=== PATIENT | female | born 2000 | race Caucasian/White ===

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

== ENCOUNTER 2018-01-20 09:19 | Emergency (ER) | payer OTHER ==
[2018-01-20] MEDS ORDERED: Ketorolac INJ* 30 MG/ML 1 ML VIAL IM ONE (09:41)
[2018-01-20] MEDS ORDERED: NS 0.9% 1000 ML* 1,000 ML IV ONE (09:42)
[2018-01-20] MEDS ORDERED: Ketorolac INJ* 30 MG/ML 1 ML VIAL IV PUSH PRN (09:43)
[2018-01-20] MEDS ORDERED: Ketorolac INJ* 30 MG/ML 1 ML VIAL ONE (09:47)
--- NOTE | 2018-01-20 09:51 | ED ---
GI/ HPI - HPI Summary HPI Summary: 17 female presents with cramping abdominal pain for the past week. States it feels like her period. She has not gotten her period. She has been on Depakote the last shot in October. [facility] She states that she has been on Depakote before when she switches ocp she normally gets her period. She denies any abnormal vaginal discharge. She states she did have nausea and vomiting a couple days ago but that has since resolved. No diarrhea no constipation. She' s had this pain before when she gets her period but is never been this intense. She has not been sexually active in 5 months. He states the pain is greatest suprapubic on and off in left lower quadrant. Pain does not radiate anywhere. She has a past medical history of ovarian cysts states she normally gets back pain with this. She denies any back pain. She states that she has some dysuria. She denies any urgency or frequency. She has been taking Tylenol and ibuprofen without relief. She has past medical history of diabetes but is not currently on metformin as sugars have been fine. She also has asthma. No previous belly surgeries. - History of Current Complaint Chief Complaint: EDAbdPain Time Seen by Provider: 01/20/18 09:29 Stated Complaint: ABD PAIN Hx Last Menstrual Period: 08/02/17 Pain Intensity: 9 - Allergy/Home Medications Allergies/Adverse Reactions: Allergies Allergy/AdvReac Type Severity Reaction Status Date / Time Adhesive Tape Allergy Intermediate Rash Verified 01/20/18 09:20 latex Allergy Rash Verified 01/20/18 09:20 Sulfa (Sulfonamide Allergy Rash Verified 01/20/18 09:20 Antibiotics) sulfamethoxazole Allergy Hives Verified 01/20/18 09:20 [From Bactrim] trimethoprim [From Bactrim] Allergy Hives Verified 01/20/18 09:20 Home Medications: Home Medications Albuterol HFA INHALER* [Ventolin HFA Inhaler*] 1 - 2 puff INH Q4H PRN 01/20/18 [ History Confirmed 01/20/18] Desogestrel-Ethinyl Estradiol [Isibloom 0.15-30 mg-Mcg] 1 tab PO DAILY 01/20/18 [History Confirmed 01/20/18] FLUoxetine CAP* [PROzac CAP*] 40 mg PO DAILY 01/20/18 [History Confirmed ] Mometasone/Formoter 200/5 MDI* [Dulera 200/5 MDI*] 1 puff INH BID 01/20/18 [ History Confirmed 01/20/18] PMH/Surg Hx/FS Hx/Imm Hx Endocrine/Hematology History: Reports: Hx Diabetes - insulin resistant Cardiovascular History: Denies: Hx Hypertension, Hx Pacemaker/ICD Respiratory History: Reports: Hx Asthma Denies: Hx Chronic Obstructive Pulmonary Disease (COPD) GI History: Reports: Hx Gastroesophageal Reflux Disease - untreated Denies: Hx Crohn's Disease, Hx Gall Bladder Disease, Hx Gastrointestinal Bleed, Hx Ulcer History: Denies: Hx Dialysis, Hx Kidney Infection, Hx Kidney Stones, Hx Renal Disease Musculoskeletal History: Denies: Hx Rheumatoid Arthritis, Hx Osteoporosis Sensory History: Reports: Hx Contacts or Glasses Denies: Hx Hearing Aid Opthamlomology History: Reports: Hx Contacts or Glasses Neurological History: Reports: Hx Headaches Psychiatric History: Reports: Hx Panic Disorder, Other Psychiatric Issues/ Disorders Denies: Hx Eating Disorder, Hx of Violent Episodes Against Others - Surgical History Surgery Procedure, Year, and Place: Tonsillectomy 2002 - Immunization History Date of Tetanus Vaccine: 2010 Date of Influenza Vaccine: 05/30/15 Infectious Disease History: No Infectious Disease History: Reports: Hx of Known/Suspected MRSA - Left knee wound age 9 Denies: Hx Clostridium Difficile, Hx Hepatitis, Hx Human Immunodeficiency Virus (HIV), Hx Shingles, Hx Tuberculosis, History Other Infectious Disease, Traveled Outside the [place] in Last 30 Days - Family History Known Family History: Positive: Cardiac Disease, Hypertension Family History: FHx of asthma - Social History Alcohol Use: None Hx Substance Use: No Substance Use Type: Reports: None Hx Tobacco Use: No Smoking Status (MU): Never Smoked Tobacco Have You Smoked in the Last Year: No Review of Systems Negative: Fever Negative: Chest Pain Negative: Shortness Of Breath Positive: Abdominal Pain. Negative: Vomiting, Diarrhea, Nausea All Other Systems Reviewed And Are Negative: Yes Physical Exam Triage Information Reviewed: Yes Vital Signs On Initial Exam: Initial Vitals Temp Pulse Resp BP Pulse Ox 96.8 F 84 16 145/112 99 01/20/18 09:20 01/20/18 09:20 01/20/18 09:20 01/20/18 09:20 01/20/18 09:20 Vital Signs Reviewed: Yes Appearance: Positive: Well-Appearing Skin: Positive: Warm, Dry Head/Face: Positive: Normal Head/Face Inspection Eyes: Positive: Normal, Conjunctiva Clear ENT: Positive: Pharynx normal Respiratory/Lung Sounds: Positive: Clear to Auscultation, Breath Sounds Present Cardiovascular: Positive: Normal, RRR Abdomen Description: Positive: Soft, Other: - mild tenderness suprapubic, tenderness LLQ, neg rovsings. Negative: McBurney's Point Tenderness Bowel Sounds: Positive: Present Musculoskeletal: Positive: Normal Neurological: Positive: Normal Psychiatric: Positive: Normal Diagnostics - Vital Signs Vital Signs Temp Pulse Resp BP Pulse Ox 01/20/18 09:20 96.8 F 84 16 145/112 99 - Laboratory Result Diagrams: 01/20/18 10:30 01/20/18 10:30 Lab Statement: Any lab studies that have been ordered have been reviewed, and results considered in the medical decision making process. - Ultrasound No standard instances Ultrasound Interpretation: Positive (See Comments) - IMPRESSION: 1. HETEROGENEOUS AND THICKENED ENDOMETRIUM WITH COMPLEX FLUID NOTED WITHIN THE ENDOMETRIAL CAVITY. 2. EXOPHYTIC/PARAOVARIAN SIMPLE CYST OF THE RIGHT OVARY MEASURING 2 CM. 3. NO SONOGRAPHIC FEATURES OF TORSION. PLEASE NOTE THAT PARTIAL OR INTERMITTENT TORSION MAY BE SONOGRAPHICALLY NORMAL. Ultrasound Interpretation Completed By: Radiologist LENIN Course/Dx - Course Course Of Treatment: 49-year-old female presents with right leg pain for the past couple days. She states it feels similar to when she has DVT in the past. She wanted to be sure she doesn't have DVT because she is traveling to [facility] [place]. She denies any chest pain or shortness breath. She states she has numbness and tingling on the side of her right thigh. She admits to occasional hip pain. She denies any back pain. She denies any loss of bowel or bladder. She denies any saddle anesthesia. She denies any fevers. She denies any spreading redness. She denies any rash. She is able to ambulate without difficulty. She states she got blood clot because she is traveling and is on control. She is no longer on control. She denies any family history of blood clots. No recent surgeries. Is nonsmoker. on exam tenderness suprapubic tenderness and LLQ. neg rovsings. wbc normal. transvaginal u/s shows thickened endometrium. simple cyst right ovary. will treat for uti with augmentin. labs wnl. [facility] explained likely menstrual pain as should get period shortly. patient understand and agrees with plan. - Diagnoses Differential Diagnoses - Female: Ovarian Cyst, Ovarian Torsion, Urinary Tract Infection Provider Diagnoses: Pelvic pain, UTI (urinary tract infection), Ovarian cyst Discharge - Sign-Out/Discharge Documenting (check all that apply): Discharge/Admit/Transfer - Discharge Plan Condition: Good Disposition: HOME Prescriptions: Amoxicillin/Clavulanate TAB* [Augmentin TAB 500 mg*] 500 mg PO BID #5 tab Patient Education Materials: Pelvic Pain (ED) Referrals: Zach Adrian MD [Primary Care Provider] - Additional Instructions: take antibiotic twice a day for 3 days [facility] Apply heat Take tyenlol or ibuprofen every 6 hours Return to ED if develop any new or worsening symptoms - Billing Disposition and Condition Condition: GOOD Disposition: HOME
--- OUTSIDE RECORDS SUMMARY | 2018-01-20 09:51 | XMS REPORT ---
:2000 External Reference #:[id number] Author Organization [facility] [employer] Address [address] [address] Phone [phone] Care Team Providers Name Role Phone Zach Adrian MD Primary Care Physician Unavailable Payers Type Date Identification Numbers Payment Provider Subscriber Commercial Effective: Policy Number: [id number] Marvin Traceyyenne Miguelito 2017 PayID: [id number] [address] [place] [address] Problems Date Description Provider Status Onset: 12/13/2017 Morbid obesity Zach Adrian M.D. Active Onset: 12/13/2017 Anxiety state Zach Adrian M.D. Active Onset: 11/30/2017 Asthma without status asthmaticus Zach Adrian M.D. Active Onset: 11/19/2017 Hypoglycemia Zach Adrian M.D. Active Onset: 11/19/2017 Low back pain Zach Adrian M.D. Active Onset: 11/19/2017 Gastroesophageal reflux disease Zach Adrian M.D. Active Onset: 11/19/2017 Insomnia Zach Adrian M.D. Active Social History Type Date Description Comments Lives With Alone Occupation Student ETOH Use Denies alcohol use Smoking Patient has never smoked Exercise Type/Frequency Exercises regularly Allergies, Adverse Reactions, Alerts Date Description Reaction Status Severity Comments 05/17/2017 Sulfa Antibiotics active 11/19/2017 Adhesive active 11/19/2017 Latex active hives 11/19/2017 Bactrim active hives Medications Medication Date Status Form Strength Qnty SIG Indications Ordering Provider Dulera 12/13/ Active Aerosol 200-5mcg/A 8.800 [address] gm twice a Pachikara day , M.D. Fluoxetine HCL 12/13/ Active Capsules 40mg 30cap 1 by mouth F41.9 Zach 2017 s every day Radhames Adrian. Ventolin HFA 11/30/ Active Aerosol 108(90Base 8gm 2 puffs by J06.9 Zach 2017 ) mcg/Act mouth four Pachikara times a , M.D. day as needed/use with spacer Omeprazole 11/19/ Active Capsules DR 20mg 30cap 1 by mouth K21.9 Zach 2017 s every day Pachikara 1 h before , M.D. breakfast Isibloom / Active Tablets 0.15-30mg- Unknown 0000 mcg Prednisone 11/30/ Hx Tablets 20mg 10tab 2 tab by J45.909 Zach 2017 - s mouth 5 Pachikara 12/27/ days , M.D. 2018 Azithromycin 11/30/ Hx Tablets 250mg 6tabs 2 tab J06.9 Zach 2017 - today and Pachikara 12/27/ then 1tab , M.D. 2018 daily Metformin HCL / Hx Tablets 500mg 1 by mouth Unknown 0000 - twice a 2017 Control / Hx Unknown 0000 - 2017 Prozac / Hx Unknown 0000 - 2017 Depo-Provera / Hx Suspension 150mg/ml every 3 Unknown 0000 - months 2017 Vital Signs Date Vital Result Comment 12/28/2017 Height 65 inches 5'5" Weight 244.38 lb Heart Rate 79 /min BP Systolic 120 mmHg BP Diastolic 64 mmHg O2 % BldC Oximetry 97 % BMI (Body Mass Index) 40.7 kg/m2 Height Percentile 61 % Weight Percentile >97th 12/13/2017 Height 65 inches 5'5" Weight 246.00 lb Heart Rate 95 /min BP Systolic 126 mmHg BP Diastolic 84 mmHg Body Temperature 98.6 F O2 % BldC Oximetry 98 % BMI (Body Mass Index) 40.9 kg/m2 Height Percentile 61 % Weight Percentile >97th 11/30/2017 Weight 241.00 lb Heart Rate 83 /min BP Systolic 120 mmHg BP Diastolic 82 mmHg Body Temperature 98.5 F O2 % BldC Oximetry 98 % Weight Percentile >97th 11/26/2017 Height 65 inches 5'5" Weight 242.00 lb BP Systolic 134 mmHg BP Diastolic 82 mmHg Respiratory Rate 16 /min Body Temperature 97.9 F Pain Level 8 BMI (Body Mass Index) 40.3 kg/m2 Blood Pressure Percentile 98 % Height Percentile 61 % Weight Percentile >97th 11/19/2017 Height 65 inches 5'5" Weight 241.38 lb Heart Rate 89 /min BP Systolic Sitting 128 mmHg BP Diastolic Sitting 80 mmHg O2 % BldC Oximetry 99 % BMI (Body Mass Index) 40.2 kg/m2 Blood Pressure Percentile 0 % Height Percentile 61 % Weight Percentile >97th 11/02/2017 Height 65 inches 5'5" Weight 242.00 lb BP Systolic 140 mmHg BP Diastolic 82 mmHg Respiratory Rate 18 /min Body Temperature 97.6 F Pain Level 8 BMI (Body Mass Index) 40.3 kg/m2 Blood Pressure Percentile 99 % Height Percentile 61 % Weight Percentile >97th 05/17/2017 Height 65 inches 5'5" Weight 230.00 lb Heart Rate 74 /min BP Systolic 135 mmHg BP Diastolic 88 mmHg Body Temperature 97.9 F BMI (Body Mass Index) 38.3 kg/m2 Blood Pressure Percentile 98 % Height Percentile 62 % Weight Percentile >97th Results Test Date Test Result H/L Range Note Laboratory test finding 12/15/2017 Insulin 21.9 mcIU/mL High 2.0-16.0 C-Peptide 4.7 ng/mL 1.1 - 4.4 1 Laboratory test finding 11/27/2017 Hemoglobin A1c (Glyco HGB) 4.6 % 4.0- 5.6 2 Comp Metabolic Panel 11/27/2017 Sodium 139 mmol/L 139-145 Potassium 3.8 mmol/L 3.5-5.0 Chloride 105 mmol/L 101-111 Co2 Carbon Dioxide 24 mmol/L 22-32 Anion Gap 10 mmol/L 2-11 Glucose 82 mg/dL 70-100 Blood Urea Nitrogen 8 mg/dL 6-24 Creatinine 0.60 mg/dL 0.51-0.95 BUN/Creatinine Ratio 13.3 8-20 Calcium 9.3 mg/dL 8.6-10.3 Total Protein 6.8 g/dL 6.4-8.9 Albumin 4.2 g/dL 3.2-5.2 Globulin 2.6 g/dL 2-4 Albumin/Globulin Ratio 1.6 1-3 Total Bilirubin 1.00 mg/dL 0.2-1.0 Alkaline Phosphatase 69 U/L 34-104 Alt 19 U/L 7-52 Ast 13 U/L 13-39 Egfr Non- 130.2 >60 Egfr 167.5 >60 3 Lipid Profile (Trig/Chol/HDL) 11/27/2017 Triglycerides 127 mg/dL 4 Cholesterol 158 mg/dL 5 HDL Cholesterol 32.4 mg/dL 6 LDL Cholesterol 100 mg/dL 7 Laboratory test finding 11/27/2017 Insulin Level 43.1 mcIU/mL 2.6 - 24.9 8 Cortisol 6.37 g/dL 9 TSH (Thyroid Stim Horm) 0.87 mcIU/mL 0.34-5.60 C-Peptide 5.6 ng/mL 1.1 - 4.4 10 Glutamic Acid Decarboxylase 0.01 nmol/L <=0.02 11 1 Test Performed by: [facility] [address] [place] [address] 2 Therapeutic target for the treatment of diabetes mellitus patients is <7% HBA1C, and in selective patients <6.0%. Please refer to [place] [employer] diabetic care guidelines for further information. 3 Because ethnic data is not always [...] 5 Kidney failure <15 (or dialysis) 4 Desirable: <150 Borderline High: 150-199 High: 200-499 Very High: >500 5 Desirable: <200 Borderline High: 200-239 High: >239 6 Low: <40 Desirable: 40-60 High: >60 7 Desirable: <100 Near Optimal: 100-129 Borderline High: 130-159 High: 160-189 Very High: >189 8 Test Performed by: [facility] - [address] [address] 9 AM 8.7-22.4 PM <10 10 Test Performed by: [facility] - [address] [address] 11 ADDITIONAL INFORMATION This test was developed and its performance characteristics determined by [facility] in a manner consistent with CLIA requirements. This test has not been cleared or approved by the U.S. Food and Drug Administration. Test Performed by: [facility] - [address] [address] Procedures Description No Information Encounters Type Date Location Provider CPT E/M Dx Office Visit 12/13/2017 11:40a [facility] Zach Adrian [address] J06.9 - Sho Woods M.D. J45.909 F41.9 E66.01 Office Visit 11/30/2017 3:20p [facility] Internal Zach Adrian 58049 J45.909 Medicine - Sho Woods M.D. J06.9 Office Visit 11/26/2017 1:00p [facility] [place] [address] M72.2 Of [facility]AS[facility] Office Visit 11/19/2017 10:20a [facility] Zach Adrian, [address] Z00.01 - Tbisi Woods M.D. G47.00 K21.9 M54.5 E16.1 F41.0 E66.01 Z68.54 Z00.00 Office Visit 11/02/2017 8:45a [facility] [place] [address] M72.2 C.M.ASanya M25.571 Office Visit 05/17/2017 1:30p [facility] [place] [address] M72.2 C.M.ASanya Y93.68 Plan of Care Future Appointment(s):02/08/2018 11:20 am - Zach Adrian M.D. at [facility] - [address]01/21/2018 1:00 pm - Dionisio Shelton MD at [facility]12/28/2017 - Zach Adrian M.D.E16.1 Other hypoglycemiaComments:Most likely high insulin levels probably from weight gain and obesityReduce carbohydrate diet /looseweightReferral:[facility], NutritionistFollow up:6 weeks
--- NOTE | 2018-01-20 10:47 | RAD ---
HISTORY: Lower abdominal pain COMPARISONS: August 18, 2017 TECHNIQUE: Multiple transverse and longitudinal ultrasound images were obtained of the pelvis using grayscale, color Doppler, and spectral Doppler imaging using the endovaginal transducer. FINDINGS: UTERUS: The uterus measures 5.7 x 3.1 x 3.9 cm. The uterus is normal in shape, size, contour, and echotexture. ENDOMETRIUM: The endometrium is heterogeneous and thickened. There is debris within the endometrial cavity.. The endometrium measures 1.6 cm in thickness. CUL-DE-SAC: There is no free fluid within the cul-de-sac. RIGHT OVARY: The right ovary measures 2.1 x 1 x 3 cm. There is an exophytic/paraovarian simple cyst on the right measuring 2 x 0.7 x 1 cm. Normal arterial and venous waveforms are identifiable within the ovary on spectral Doppler imaging. LEFT OVARY: The left ovary measures 2.8 x 1.3 x 2.2 cm. Normal arterial and venous waveforms are identifiable within the ovary on spectral Doppler imaging. Multiple follicles are noted. BLADDER: The bladder is not well visualized. OTHER: None IMPRESSION: 1. HETEROGENEOUS AND THICKENED ENDOMETRIUM WITH COMPLEX FLUID NOTED WITHIN THE ENDOMETRIAL CAVITY. 2. EXOPHYTIC/PARAOVARIAN SIMPLE CYST OF THE RIGHT OVARY MEASURING 2 CM. 3. NO SONOGRAPHIC FEATURES OF TORSION. PLEASE NOTE THAT PARTIAL OR INTERMITTENT TORSION MAY BE SONOGRAPHICALLY NORMAL.
[2018-01-20 10:56] LABS: ABS Basophils 0.1 10^3/ul (0-0.2); ABS Eosinophils 0.2 10^3/ul (0-0.6); ABS Lymphocytes 2.2 10^3/ul (1.0-4.8); ABS Monocytes 0.6 10^3/ul (0-0.8); ABS Neutrophils 4.1 10^3/ul (1.5-7.7); ABS Nucleated RBC 0 10^3/ul; Eosinophil % 2.7 % (0-6); Hematocrit 42 % (35-47); Hemoglobin 14.1 g/dl (12.0-16.0); Mean Corpuscular HGB Conc 34 g/dl (31-36); Mean Corpuscular Hemoglobin 28 pg (27-31); Mean Corpuscular Volume 82 fL (80-97); Mean Platelet Volume 7.8 um3 (7.4-10.4); Nucleated Red Blood Cells % 0; Platelet Count 246 10^3/ul (150-450); Red Blood Count 5.08 10^6/ul (4.0-5.4); Red Cell Distribution Width 14 % (10.5-15); White Blood Count 7.2 10^3/ul (3.5-10.8)
[2018-01-20 11:01] LABS: Urine Appearance Clear; Urine Blood 1+ (Negative); Urine Color Yellow; Urine Ketones Negative (Negative); Urine Protein Negative (Negative); Urine Urobilinogen Negative (Negative)
[2018-01-20 11:09] LABS: EGFR Non-African American 119.5 (>60)
[2018-01-20] MEDS ORDERED: Amoxicillin/Clavulanate TAB* 500 MG PO ONE (12:35)
[2018-01-20 13:02] VITALS: BP 141/88
== END 2018-01-20 13:01 | disposition home or self-care (01) ==
LOC: ED 09:19
DX: R10.2 Pelvic and perineal pain (principal); N39.0 Urinary tract infection, site not specified; N83.201 Unspecified ovarian cyst, right side; E11.9 Type 2 diabetes mellitus without complications; E88.81 Metabolic syndrome and other insulin resistance; Z88.2 Allergy status to sulfonamides
CPT/HCPCS: 36415; 76830; 80053; 81003; 81015; 83690; 84702; 85025; 86141; 87086; 96360; 96372; 96374; 99282; A9270-GY; J1885

== ENCOUNTER 2018-04-17 03:16 | Emergency (ER) | payer OTHER ==
[2018-04-17] MEDS ORDERED: Lidocaine 2% VISCOUS* 15 ML UDC PO ONE (03:24)
[2018-04-17] MEDS ORDERED: Lidocaine 2% VISCOUS* 15 ML UDC ONE (03:27)
[2018-04-17] MEDS ORDERED: Al Hydrox/Mg Hydrox/Simet LIQ* 30 ML UDC ONE (03:27)
--- OUTSIDE RECORDS SUMMARY | 2018-04-17 03:29 | XMS REPORT ---
:2000 External Reference #:[id number] Author Organization [facility] Address [address] [address] Phone [phone] Care Team Providers Name Role Phone Zach Adrian MD Primary Care Physician Unavailable Payers Type Date Identification Numbers Payment Provider Subscriber Commercial Effective: Policy Number: [id number] Marvin Spence 2017 PayID: [id number] [address] [place] [phone] Problems Date Description Provider Status Onset: 03/29/2018 Tibialis tendinitis Dionisio Shelton MD Active Onset: 03/29/2018 Plantar fascial fibromatosis Dionisio Shelton MD Active Onset: 03/22/2018 Sciatica Zach Adrian M.D. Active Onset: 12/13/2017 Morbid obesity Zach Adrian M.D. Active Onset: 12/13/2017 Anxiety state Zach Adrian M.D. Active Onset: 11/30/2017 Asthma without status asthmaticus Zach Adrian M.D. Active Onset: 11/19/2017 Hypoglycemia Zach Adrian M.D. Active Onset: 11/19/2017 Low back pain Zach Adrian M.D. Active Onset: 11/19/2017 Gastroesophageal reflux disease Zach Adrain M.D. Active Onset: 11/19/2017 Insomnia Zach Pachikara, M.D. Active Social History Type Date Description Comments Lives With Alone Occupation Student ETOH Use Denies alcohol use Smoking Patient has never smoked Exercise Type/Frequency Exercises regularly Allergies, Adverse Reactions, Alerts Date Description Reaction Status Severity Comments 05/17/2017 Sulfa Antibiotics active 11/19/2017 Adhesive active 11/19/2017 Latex active hives 11/19/2017 Bactrim active hives Medications Medication Date Status Form Strength Qnty SIG Indications Ordering Provider Naproxen 03/22/ Active Tablets 375mg 60tab twice a M54.31 Zach 2017 s day with Pachikara food , M.D. Alprazolam 02/08/ Active Tablets 0.25mg 14tab one by F41.9 [place] 2017 s mouth up Pachikara to two , M.D. times daily as needed for anxiety Dulera 12/13/ Active Aerosol 200-5mcg/A 8.800 [address] gm twice a Pachikara day , M.D. Fluoxetine HCL 12/13/ Active Capsules 40mg 30cap 1 by mouth F41.9 Zach 2017 s every day Pachdebra , M.D. Ventolin HFA 11/30/ Active Aerosol 108(90Base 8gm 2 puffs by J06.9 [place] 2017 ) mcg/Act mouth four Pachikara times a , M.D. day as needed/use with spacer Omeprazole 11/19/ Active Capsules DR 20mg 30cap 1 by mouth K21.9 [place] 2017 s every day Pachikara 1 h before , M.D. breakfast Prednisone 11/30/ Hx Tablets 20mg 10tab 2 tab by J45.909 Zach 2017 - s mouth 5 Pachikara 12/27/ days , M.D. 2018 Azithromycin 11/30/ Hx Tablets 250mg 6tabs 2 tab J06.9 [place] 2017 - today and Pachikara 12/27/ then 1tab , M.D. 2018 daily Metformin HCL / Hx Tablets 500mg 1 by mouth Unknown 0000 - twice a day 2018 Control /00/ Hx Unknown - 2017 Prozac // Hx Unknown 0000 - 2017 Depo-Provera / Hx Suspension 150mg/ml every 3 Unknown 0000 - months 2017 Isibloom / Hx Tablets 0.15-30mg- Unknown 0000 - mcg 2017 Vital Signs Date Vital Result Comment 03/29/2018 Height 65 inches 5'5" Weight 233.00 lb Heart Rate 88 /min Respiratory Rate 20 /min Body Temperature 96.7 F Pain Level 9 BMI (Body Mass Index) 38.8 kg/m2 Height Percentile 61 % Weight Percentile >97th 03/22/2018 Height 65 inches 5'5" Weight 233.00 lb Heart Rate 69 /min BP Systolic Sitting 132 mmHg BP Diastolic Sitting 82 mmHg Body Temperature 96.8 F Pain Level 7 back/Right foot O2 % BldC Oximetry 98 % BMI (Body Mass Index) 38.8 kg/m2 Height Percentile 61 % Weight Percentile >97th 02/08/2018 Height 65 inches 5'5" Weight 240.00 lb Heart Rate 85 /min BP Systolic 122 mmHg BP Diastolic 60 mmHg O2 % BldC Oximetry 96 % BMI (Body Mass Index) 39.9 kg/m2 Height Percentile 61 % Weight Percentile >97th 12/28/2017 Height 65 inches 5'5" Weight 244.38 [...] Test Date Test Result H/L Range Note CBC Auto Diff 01/20/2018 White Blood Count 7.2 10^3/uL 3.5-10.8 Red Blood Count 5.08 10^6/uL 4.0-5.4 Hemoglobin 14.1 g/dL 12.0-16.0 Hematocrit 42 % 35-47 Mean Corpuscular Volume 82 fL 80-97 Mean Corpuscular Hemoglobin 28 pg 27-31 Mean Corpuscular HGB Conc 34 g/dL 31-36 Red Cell Distribution Width 14 % 10.5-15 Platelet Count 246 10^3/uL 150-450 Mean Platelet Volume 7.8 um3 7.4-10.4 Abs Neutrophils 4.1 10^3/uL 1.5-7.7 Abs Lymphocytes 2.2 10^3/uL 1.0-4.8 Abs Monocytes 0.6 10^3/uL 0-0.8 Abs Eosinophils 0.2 10^3/uL 0-0.6 Abs Basophils 0.1 10^3/uL 0-0.2 Abs Nucleated RBC 0 10^3/uL Granulocyte % 56.7 % 38-83 Lymphocyte % 31.0 % 25-47 Monocyte % 8.6 % High 0-7 Eosinophil % 2.7 % 0-6 Basophil % 1.0 % 0-2 Nucleated Red Blood Cells % 0 Comp Metabolic Panel 01/20/2018 Sodium 139 mmol/L 139-145 Potassium 3.5 mmol/L 3.5-5.0 Chloride 108 mmol/L 101-111 Co2 Carbon Dioxide 24 mmol/L 22-32 Anion Gap 7 mmol/L 2-11 Glucose 86 mg/dL 70-100 Blood Urea Nitrogen 10 mg/dL 6-24 Creatinine 0.64 mg/dL 0.51-0.95 BUN/Creatinine Ratio 15.6 8-20 Calcium 9.3 mg/dL 8.6-10.3 Total Protein 7.0 g/dL 6.4-8.9 Albumin 4.1 g/dL 3.2-5.2 Globulin 2.9 g/dL 2-4 Albumin/Globulin Ratio 1.4 1-3 Total Bilirubin 0.80 mg/dL 0.2-1.0 Alkaline Phosphatase 63 U/L 34-104 Alt 16 U/L 7-52 Ast 14 U/L 13-39 Egfr Non- 119.5 >60 Egfr 153.7 >60 1 Laboratory test finding 01/20/2018 Lipase 32 U/L 11.0-82.0 CRP High Sensitivity 7.80 mg/L 2 HCG < 0.60 mIU/mL 3 Urinalysis Profile 01/20/2018 Urine Color Yellow Urine Appearance Clear Urine Specific [place] 1.020 1.010-1.030 Urine pH 5.0 5-9 Urine Urobilinogen Negative Negative Urine Ketones Negative Negative Urine Protein Negative Negative Urine Leukocytes 1+ Negative Urine Blood 1+ Negative Urine Nitrite Negative Negative Urine Bilirubin Negative Negative Urine Glucose Negative Negative Urine White Blood Cell 1+(6-10/hpf) Absent Urine Red Blood Cell Trace(0-2/hpf) Absent Urine Bacteria Absent Absent Urine Squamous Epithelial Cell Present Absent Urine Culture And 01/20/2018 Urine Culture SEE RESULT BELOW 4 Sensitivities Laboratory test finding 12/15/2017 Insulin 21.9 mcIU/mL High 2.0-16.0 C-Peptide 4.7 ng/mL 1.1 - 4.4 5 Laboratory test finding 11/27/2017 Hemoglobin A1c (Glyco HGB) 4.6 % 4.0- 5.6 6 Comp Metabolic Panel 11/27/2017 Sodium 139 mmol/L [...] Egfr Non- 130.2 >60 Egfr 167.5 >60 7 Lipid Profile (Trig/Chol/HDL) 11/27/2017 Triglycerides 127 mg/dL 8 Cholesterol 158 mg/dL 9 HDL Cholesterol 32.4 mg/dL 10 LDL Cholesterol 100 mg/dL 11 Laboratory test finding 11/27/2017 Insulin Level 43.1 mcIU/mL 2.6 - 24.9 12 Cortisol 6.37 g/dL 13 TSH (Thyroid Stim Horm) 0.87 mcIU/mL 0.34-5.60 C-Peptide 5.6 ng/mL 1.1 - 4.4 14 Glutamic Acid Decarboxylase 0.01 nmol/L <=0.02 15 1 Because ethnic data is not always readily [...] 15-29 5 Kidney failure <15 (or dialysis) 2 Low risk: <1.00 Average risk: 1.00-3.00 High risk: >3.00 3 <5.0 Negative 5.0 - 25.0 Indeterminate (Repeat testing recommended after 72 hours) >25.0 Positive Perimenopausal women can display HCG levels of up to 20 mIU/mL 4 SEE RESULT BELOW Name: NAHOMY SPENCE : [address]: Meryl Peralta MD Acct: [id number] Unit: [id number] AGE: 17 Location: ED Re01/20/18 SEX: F Status: DEP ER SPEC: [id number] SU: 01/20/[address]: Lizzy CAMPBELL REQ: [id number] RECD: 01/20/18 STATUS: MURRAY GARCIA DR: Zach Peralta MD _ SOURCE: URINE SPDESC: ORDERED: Urine Culture Procedure Result Reported Site Urine Culture Final 01/21/18- 1340 ML No growth of clinically significant organisms * ML - Main Lab . END OF REPORT DEPARTMENT OF PATHOLOGY, [address] [place] [address] Baljinder Gonzalez M.D. Director [facility] # [id number] 5 Test Performed by: [facility] [place] [address] 6 Therapeutic target for the treatment of diabetes mellitus patients is <7% HBA1C, and in selective patients <6.0%. Please refer to [place] [employer] diabetic care guidelines for further information. 7 Because ethnic data is not always [...] 5 Kidney failure <15 (or dialysis) 8 Desirable: <150 Borderline High: 150-199 High: 200-499 Very High: >500 9 Desirable: <200 Borderline High: 200-239 High: >239 10 Low: <40 Desirable: 40-60 High: >60 11 Desirable: <100 Near Optimal: 100-129 Borderline High: 130-159 High: 160-189 Very High: >189 12 Test Performed by: [facility] - [address] [address] 13 AM 8.7-22.4 PM <10 14 Test Performed by: [facility] - [address] [address] 15 ADDITIONAL INFORMATION This test was developed and its performance characteristics determined by [facility] in a manner consistent with CLIA requirements. This test has not been cleared or approved by the U.S. Food and Drug Administration. Test Performed by: [facility] - [address] [address] Procedures Description No Information Encounters Type Date Location Provider CPT E/M Dx Office Visit 03/22/2018 11:20a [facility] Zach Adrian [address] F41.9 - [place]bs J45.909 M54.31 N91.0 Office Visit 02/08/2018 11:20a [facility] Zach Adrian M.D. 21142 F41.9 Medicine - [address] Office Visit 12/28/2017 11:20a [facility] Low Adrian M.D. 33554 E16.1 Medicine - [address] Office Visit 12/13/2017 11:40a [facility] Low Adrian M.D. [address]4622 J06.9 Medicine - [address] J45.909 F41.9 E66.01 Office Visit 11/30/2017 3:20p [facility] Zach Adrian [address] J45.909 Medicine - [place] [address] [place]bs J06.9 Office Visit 11/26/2017 1:00p [place] [address] M72.2 Of [facility] Office Visit 11/19/2017 10:20a [facility] Zach Adrian [address] Z00.01 - [place] [address] [place] G47.00 K21.9 M54.5 E16.1 F41.0 E66.01 Z68.54 Z00.00 Office Visit 11/02/2017 8:45a [facility] [place] [address] M72.2 Petros.MLiz M25.571 Office Visit 05/17/2017 1:30p [facility] [place] [address] M72.2 C.MLiz Y93.68 Plan of Care Future Appointment(s):04/26/2018 1:30 pm - [facility]io [facility]05/03/2018 1:20 pm - Zach Adrian M.D. at [facility] - [address]/29/2018 - Dionisio Shelton, MDM72.2 Plantar fascial fibromatosisFollow up:Follow Up: 4 yegipE33.821 Posterior tibial tendinitis, right leg
--- OUTSIDE RECORDS SUMMARY | 2018-04-17 03:29 | XMS REPORT ---
:2000 External Reference #:[id number] Author Organization [facility] Address [address] [place] [place] [address] Phone [phone] Care Team Providers Name Role Phone Zach Adrian MD Primary Care Physician Unavailable Payers Type Date Identification Numbers Payment Provider Subscriber Commercial Effective: Policy Number: [id number] Marvin Corea Bauer 2017 PayID: [id number] [address] [place] [phone] Problems Date Description Provider Status Onset: 03/22/2018 Sciatica Zach Adrian M.D. Active [...] Active Tablets 0.25mg 14tab one by F41.9 Zach 2017 s mouth up Pachikara to two , M.D. times daily as needed for anxiety Dulera 12/13/ Active Aerosol 200-5mcg/A 8.800 [address] gm twice a Pachikara day , M.D. Fluoxetine HCL 12/13/ Active Capsules 40mg 30cap 1 by mouth F41.9 [place] 2017 s every day Pachikara , M.D. Ventolin HFA 11/30/ Active Aerosol [...] 0000 - twice a day 2018 Control // Hx Unknown 0000 - 2017 Prozac / Hx Unknown 0000 - 2017 Depo-Provera / Hx Suspension 150mg/ml every 3 Unknown 0000 - months 2017 Isibloom / Hx Tablets 0.15-30mg- Unknown 0000 - mcg 2017 Vital Signs Date Vital Result Comment 03/22/2018 Height 65 inches 5'5" Weight 233.00 lb Heart Rate 69 /min BP Systolic Sitting 132 mmHg BP Diastolic Sitting 82 mmHg Body Temperature 96.8 F Pain Level 7 back/Right foot O2 % BldC Oximetry 98 % BMI (Body Mass Index) 38.8 kg/m2 Height Percentile 61 % Weight Percentile >9702/08/2018 Height 65 inches 5'5" Weight 240.00 lb Heart Rate 85 /min BP Systolic 122 mmHg BP Diastolic 60 mmHg O2 % BldC Oximetry 96 % BMI (Body Mass Index) 39.9 kg/m2 Height Percentile 61 % Weight Percentile >9712/28/2017 Height 65 inches 5'5" Weight 244.38 lb Heart Rate 79 /min BP Systolic 120 mmHg BP Diastolic 64 mmHg O2 % BldC Oximetry 97 % BMI (Body Mass Index) 40.7 kg/m2 Height Percentile 61 % Weight Percentile >9712/13/2017 Height 65 inches 5'5" Weight 246.00 lb Heart Rate 95 /min BP Systolic 126 mmHg BP Diastolic 84 mmHg Body Temperature 98.6 F O2 % BldC Oximetry 98 % BMI (Body Mass Index) 40.9 kg/m2 Height Percentile 61 % Weight Percentile >9711/30/2017 Weight 241.00 lb Heart Rate 83 /min BP Systolic 120 mmHg BP Diastolic 82 mmHg Body Temperature 98.5 F O2 % BldC Oximetry 98 % Weight Percentile >9711/26/2017 Height 65 inches 5'5" Weight 242.00 lb BP Systolic 134 mmHg BP Diastolic 82 mmHg Respiratory Rate 16 /min Body Temperature 97.9 F Pain Level 8 BMI (Body Mass Index) 40.3 kg/m2 Blood Pressure Percentile 98 % Height Percentile 61 % Weight Percentile >9711/19/2017 Height 65 inches 5'5" Weight 241.38 lb Heart Rate 89 /min BP Systolic Sitting 128 mmHg BP Diastolic Sitting 80 mmHg O2 % BldC Oximetry 99 % BMI (Body Mass Index) 40.2 kg/m2 Blood Pressure Percentile 0 % Height Percentile 61 % Weight Percentile >9711/02/2017 Height 65 inches 5'5" Weight 242.00 lb BP Systolic 140 mmHg BP Diastolic 82 mmHg Respiratory Rate 18 /min Body Temperature 97.6 F Pain Level 8 BMI (Body Mass Index) 40.3 kg/m2 Blood Pressure Percentile 99 % Height Percentile 61 % Weight Percentile >9705/17/2017 Height 65 inches 5'5" Weight 230.00 lb [...] Color Yellow Urine Appearance Clear Urine Specific [place] 1.020 1.010-1.030 Urine pH 5.0 5-9 Urine [...] 20 mIU/mL 4 SEE RESULT BELOW Name: BRAYAN SPENCE : [address]: Meryl Peralta MD Acct: [id number] Unit: [id number] AGE: 17 Location: ED Re01/20/18 SEX: F Status: DEP ER SPEC: [id number] SU: 01/20/[address]: Lizzy CAMPBELL REQ: [id number] RECD: 01/20/18 STATUS: MURRAY GARCIA DR: Zach Peralta MD _ SOURCE: URINE SPDESC: ORDERED: Urine Culture Procedure Result Reported Site Urine Culture Final 01/21/18- 1340 ML No growth of clinically significant organisms * ML - Main Lab . END OF REPORT DEPARTMENT OF PATHOLOGY, [address] [place] [address] Baljinder Gonzalez M.D. Director [facility] # [id number] 5 Test Performed by: [place] [address] 6 Therapeutic target for the treatment of diabetes mellitus patients is <7% HBA1C, and in selective patients <6.0%. Please refer to [place] [employer] diabetic care guidelines for further [...] Very High: >189 12 Test Performed by: [place] [address] 13 AM 8.7-22.4 PM <10 14 Test Performed by: [address] [address] 15 ADDITIONAL INFORMATION This test was developed and its performance characteristics determined by [facility] in a manner consistent with CLIA requirements. This test has not been cleared or approved by the U.S. Food and Drug Administration. Test Performed by: [address] [address] Procedures Description No Information Encounters Type Date Location Provider CPT E/M Dx Office Visit 02/08/2018 11:20a [facility] Medicine Zach Adrian, [address] F41.9 - [place] [address] Office Visit 12/28/2017 11:20a [facility] Internal [facility] Zach Adrian [address] E16.1 - [place] [address] [place] Office Visit 12/13/2017 11:40a [facility] Zach Adrian [address] J06.9 - [place] [address] [place] J45.909 F41.9 E66.01 Office Visit 11/30/2017 3:20p [facility] Internal Zach Adrian [address] J45.909 Medicine - [place] [address] [place] J06.9 Office Visit 11/26/2017 1:00p [place] [address] M72.2 Of [facility] Office Visit 11/19/2017 10:20a [facility] Internal [facility] Zach Adrian, [address] Z00.01 - [place] G47.00 K21.9 M54.5 E16.1 F41.0 E66.01 Z68.54 Z00.00 Office Visit 11/02/2017 8:45a [facility] [place] [address] M72.2 C.M.A. M25.571 Office Visit 05/17/2017 1:30p [facility] [place] [address] M72.2 C.M.A. Y93.68 Plan of Care Future Appointment(s):05/03/2018 1:20 pm - aZch Adrian M.D. at [facility] Medicine - [address]/22/2018 - Zach Adrian M.D.F41.9 Anxiety disorder, unspecifiedComments:Xanax has addiction potential and tolerance. Not to increase dose yourself. Always try to cut down the dose. Not to drive after taking it because of its sedating effects . care home use can lead to memmory problems.Follow up:6 jlpkjE27.909 Unspecified asthma, uncomplicatedComments: Your asthma symptoms are stable. Continue both the Dulera twice a day and ventolin as needed.M54.31 Sciatica, right sideNew Medication:Naproxen 375 mgN91.0 Primary amenorrheaComments:Make sure to call EAR MACHINE OPERATOR
[2018-04-17] MEDS ORDERED: Al Hydrox/Mg Hydrox/Simet LIQ* 30 ML UDC PO ONE (03:33)
[2018-04-17 03:45] LABS: ABS Basophils 0.2 10^3/ul (0-0.2); ABS Eosinophils 0.4 10^3/ul (0-0.6); ABS Lymphocytes 4.5 10^3/ul (1.0-4.8); ABS Monocytes 1.2 10^3/ul (0-0.8); ABS Neutrophils 9.4 10^3/ul (1.5-7.7); ABS Nucleated RBC 0 10^3/ul; Eosinophil % 2.8 % (0-6); Hematocrit 42 % (35-47); Hemoglobin 14.6 g/dl (12.0-16.0); Lymphocyte % 28.6 % (25-47); Mean Corpuscular HGB Conc 35 g/dl (31-36); Mean Corpuscular Hemoglobin 28 pg (27-31); Mean Corpuscular Volume 81 fL (80-97); Mean Platelet Volume 7.8 um3 (7.4-10.4); Nucleated Red Blood Cells % 0.1; Platelet Count 319 10^3/ul (150-450); Red Blood Count 5.21 10^6/ul (4.00-5.40); Red Cell Distribution Width 13 % (10.5-15); White Blood Count 15.7 10^3/ul (3.5-10.8)
[2018-04-17 04:57] LABS: Urine Appearance Cloudy; Urine Blood Negative (Negative); Urine Color Yellow; Urine Ketones Negative (Negative); Urine Protein Negative (Negative); Urine Red Blood Cell Absent (Absent); Urine Urobilinogen Negative (Negative); Urine White Blood Cell Trace(0-5/hpf) (Absent)
[2018-04-17] MEDS ORDERED: Famotidine TAB* 20 MG PO ONE (06:02)
[2018-04-17] MEDS ORDERED: Ondansetron ODT TAB* 4 MG PO ONE (06:02)
--- NOTE | 2018-04-17 06:09 | ED ---
Abdominal Pain/Female - HPI Summary HPI Summary: Pt.is a 17-year-old female who presents emergency department for acute onset of epigastric abdominal pain, vomiting and diarrhea that started early this morning. She denies sick contacts or recent travels. Pain is constant in nature without modifying factors. Denies upper respiratory symptoms of cough, sore throat, sinus congestion. Denies urinary symptoms, vaginal bleeding or discharge. Symptoms are moderate in severity. She notes she has a hx of GERD but only takes medications when symptoms occur. No significant past medical history. - History of Current Complaint Chief Complaint: EDAbdPain Stated Complaint: ABD/BACK PAIN Time Seen by Provider: 04/17/18 05:53 Hx Obtained From: Patient Hx Last Menstrual Period: 08/02/17 Pain Intensity: 10 Allergies/Adverse Reactions: Allergies Allergy/AdvReac Type Severity Reaction Status Date / Time Adhesive Tape Allergy Intermediate Rash Verified 01/20/18 09:20 latex Allergy Rash Verified 01/20/18 09:20 Sulfa (Sulfonamide Allergy Rash Verified 01/20/18 09:20 Antibiotics) sulfamethoxazole Allergy Hives Verified 01/20/18 09:20 [From Bactrim] trimethoprim [From Bactrim] Allergy Hives Verified 01/20/18 09:20 PMH/Surg Hx/FS Hx/Imm Hx Previously Healthy: Yes Endocrine/Hematology History: Reports: Hx Diabetes - insulin resistant Cardiovascular History: Denies: Hx Hypertension, Hx Pacemaker/ICD Respiratory History: Reports: Hx Asthma Denies: Hx Chronic Obstructive Pulmonary Disease (COPD) GI History: Reports: Hx Gastroesophageal Reflux Disease - untreated Denies: Hx Crohn's Disease, Hx Gall Bladder Disease, Hx Gastrointestinal Bleed, Hx Ulcer History: Denies: Hx Dialysis, Hx Kidney Infection, Hx Kidney Stones, Hx Renal Disease Musculoskeletal History: Denies: Hx Rheumatoid Arthritis, Hx Osteoporosis Sensory History: Reports: Hx Contacts or Glasses Denies: Hx Hearing Aid Opthamlomology History: Reports: Hx Contacts or Glasses Neurological History: Reports: Hx Headaches Psychiatric History: Reports: Hx Panic Disorder, Other Psychiatric Issues/ Disorders Denies: Hx Eating Disorder, Hx of Violent Episodes Against Others - Surgical History Surgery Procedure, Year, and Place: Tonsillectomy 2002 - Immunization History Date of Tetanus Vaccine: utd Date of Influenza Vaccine: unk Infectious Disease History: No Infectious Disease History: Reports: Hx of Known/Suspected MRSA - Left knee wound age 9 Denies: Hx Clostridium Difficile, Hx Hepatitis, Hx Human Immunodeficiency Virus (HIV), Hx Shingles, Hx Tuberculosis, History Other Infectious Disease, Traveled Outside the [place] in Last 30 Days - Family History Known Family History: Positive: Cardiac Disease, Hypertension Family History: FHx of asthma - Social History Occupation: Employed Full-time Lives: Alone Alcohol Use: None Hx Substance Use: No Substance Use Type: Reports: None Hx Tobacco Use: No Smoking Status (MU): Never Smoked Tobacco Have You Smoked in the Last Year: No Review of Systems Constitutional: Negative Negative: Fever, Chills Eyes: Negative ENT: Negative Cardiovascular: Negative Respiratory: Negative Positive: Abdominal Pain, Vomiting, Diarrhea, Nausea Genitourinary: Negative Negative: burning, dysuria, discharge Neurological: Negative All Other Systems Reviewed And Are Negative: Yes Physical Exam Triage Information Reviewed: Yes Vital Signs On Initial Exam: Initial Vitals Temp Pulse Resp BP Pulse Ox 98 F 110 24 164/132 100 04/17/18 03:17 04/17/18 03:17 04/17/18 03:17 04/17/18 03:17 04/17/18 03:17 Vital Signs Reviewed: Yes Appearance: Positive: Well-Appearing - Pt. lying in bed in NAD. Anxious. Skin: Positive: Warm, Dry Head/Face: Positive: Normal Head/Face Inspection Eyes: Positive: Normal Neck: Positive: Supple Cardiovascular: Positive: Normal, RRR Abdomen Description: Positive: Other: - Morbidly obese. Abd. is soft with diffuse tenderness. Majority of pain is located to the epigastric region. Negative burgos's sign. No rebound tenderness or rigidity. Neurological: Positive: Normal, CN Intact II-III Psychiatric: Positive: Affect/Mood Appropriate Diagnostics - Vital Signs Vital Signs Temp Pulse Resp BP Pulse Ox 04/17/18 05:37 97.9 F 104 22 141/95 99 04/17/18 03:17 98 F 110 24 164/132 100 - Laboratory Lab Results: Lab Results 04/17/18 04/17/18 04/17/18 Range/Units 03:29 03:29 04:05 WBC 15.7 H (3.5-10.8) 10^3/ul RBC 5.21 (4.00-5.40) 10^6/ul Hgb 14.6 (12.0-16.0) g/dl Hct 42 (35-47) % MCV 81 (80-97) fL MCH 28 (27-31) pg MCHC 35 (31-36) g/dl RDW 13 (10.5-15) % Plt Count 319 (150-450) 10^3/ul MPV 7.8 (7.4-10.4) um3 Neut % (Auto) 60.0 (38-83) % Lymph % (Auto) 28.6 (25-47) % [place] % (Auto) 7.6 H (0-7) % Eos % (Auto) 2.8 (0-6) % Baso % (Auto) 1.0 (0-2) % Absolute Neuts (auto) 9.4 H (1.5-7.7) 10^3/ul Absolute Lymphs (auto) 4.5 (1.0-4.8) 10^3/ul Absolute Monos (auto) 1.2 H (0-0.8) 10^3/ul Absolute Eos (auto) 0.4 (0-0.6) 10^3/ul Absolute Basos (auto) 0.2 (0-0.2) 10^3/ul Absolute Nucleated RBC 0 10^3/ul Nucleated RBC % 0.1 Sodium 140 (135-145) mmol/L Potassium 3.6 (3.5-5.0) mmol/L Chloride 104 (101-111) mmol/L Carbon Dioxide 27 (22-32) mmol/L Anion Gap 9 (2-11) mmol/L BUN 10 (6-24) mg/dL Creatinine 0.71 (0.51-0.95) mg/dL Est GFR ( Amer) 128.3 (>60) Est GFR (Non-Af Amer) 106.0 (>60) BUN/Creatinine Ratio 14.1 (8-20) Glucose 107 H (70-100) mg/dL Calcium 9.6 (8.6-10.3) mg/dL Total Bilirubin 0.80 (0.2-1.0) mg/dL AST 18 (13-39) U/L ALT 28 (7-52) U/L Alkaline Phosphatase 90 (34-104) U/L Total Protein 7.6 (6.4-8.9) g/dL Albumin 4.4 (3.2-5.2) g/dL Globulin 3.2 (2-4) g/dL Albumin/Globulin Ratio 1.4 (1-3) Lipase 22 (11.0-82.0) U/L Beta HCG, Quant < 0.60 mIU/mL Urine Color Yellow Urine Appearance Cloudy Urine pH 7.0 (5-9) Ur Specific [place] 1.020 (1.010-1.030) Urine Protein Negative (Negative) Urine Ketones Negative (Negative) Urine Blood Negative (Negative) Urine Nitrate Negative (Negative) Urine Bilirubin Negative (Negative) Urine Urobilinogen Negative (Negative) Ur Leukocyte Esterase 1+ A (Negative) Urine WBC (Auto) Trace(0-5/hpf) (Absent) Urine RBC (Auto) Absent (Absent) Ur Squamous Epith Cells Present A (Absent) Amorphous Crystals Present A (Absent) Urine Bacteria Absent (Absent) Urine Glucose Negative (Negative) Result Diagrams: 04/17/18 03:29 04/17/18 03:29 Lab Statement: Any lab studies that have been ordered have been reviewed, and results considered in the medical decision making process. Abdominal Pain Fem Course/Dx - Course Course Of Treatment: Pt. presenting for epigastric pain, vomiting and diarrhea. HR and BP initially elevated. Will recheck. Afebrile. Benign abd. exam. Blood work and urine obtained in triage. CBC shows leukocytosis of 15K. Blood work is otherwise unremarkable. Negative urine. Pt. was given GI cocktail in triage that she states briefly improved pain. Suscept gastroenteritis. Will give PO zofran and pepcid. 0715: Pt. states her pain has not improved after medication. Pt. pain is only located to epigastric region. She described has a pressure and notes she has been having a lot of gas since in ED. Will try simethicone. Did discuss with pt. possibility of imaging given WBC and ongoing pain if her does not improve. 0800: Pt.'s pain is improving. Tolerating POs. Will rx pepcid and zofran. Can take pepto OTC as directed. Pt.'s BP has continued to be elevated in ED. No hx of HTN. Advised pt. to call PCP tomorrow for a f.u apt. and recheck BP. To increase fluids. Clear liquid diet x 24 hours. To return to ER if symptoms change or worsen. - Diagnoses Differential Diagnosis: Positive: Appendicitis, Constipation, Ectopic , Gall Bladder Disease, Hepatitis, Ovarian Cyst, , Renal Colic, Urinary Tract Infection Provider Diagnoses: Gastroenteritis, Elevated blood pressure reading Discharge - Sign-Out/Discharge Documenting (check all that apply): Patient Departure - Discharge Plan Condition: Good Disposition: HOME Prescriptions: Famotidine TAB* [Pepcid 20 MG TAB*] 20 mg PO DAILY #14 tab Ondansetron TAB* [Zofran 4 MG Tab*] 4 mg PO Q6H PRN #12 tab PRN Reason: Nausea Patient Education Materials: Gastroenteritis (ED), Hypertension (ED) Referrals: Zach Adrian MD [Primary Care Provider] - Additional Instructions: Call your PCP tomorrow to schedule a follow up appointment Your blood pressure was high in ED today-you will need to see your PCP in the next week to have it rechecked Take medications as prescribed Can take over the counter pepto bismol as directed to help with pain and symptoms Increase fluids Clear liquid diet x 24 hours Return to ER if symptoms change or worsen - Billing Disposition and Condition Condition: GOOD Disposition: Home
[2018-04-17] MEDS ORDERED: Simethicone TAB* 80 MG TAB.CHEW PO ONE (07:16)
[2018-04-17 08:38] VITALS: BP 147/106
== END 2018-04-17 08:38 | disposition home or self-care (01) ==
LOC: ED 03:16
DX: K52.9 Noninfective gastroenteritis and colitis, unspecified (principal); R03.0 Elevated blood-pressure reading, without diagnosis of hypertension; Z91.040 Latex allergy status; Z88.2 Allergy status to sulfonamides; Z91.048 Other nonmedicinal substance allergy status; Z82.49 Family history of ischemic heart disease and other diseases of the circulatory system; Z82.5 Family history of asthma and other chronic lower respiratory diseases
CPT/HCPCS: 36415; 80053; 81003; 81015; 83690; 84702; 85025; 87086; 99283; A9270-GY

== ENCOUNTER 2018-05-31 23:05 | Emergency (ER) | payer OTHER ==
[2018-06-01] MEDS ORDERED: Ciproflox/Dexameth OTIC.SUSP* 7.5 ML BTL RIGHT EAR ONE (00:04)
[2018-06-01] MEDS ORDERED: Ibuprofen TAB* 600 MG PO ONE (00:04)
--- NOTE | 2018-06-01 00:09 | ED ---
Throat Pain/Nasal Congestion - HPI Summary HPI Summary: Patient complains of right ear pain 3 days with purulent discharge and low- grade fever. Denies history of recurrent ear infections, cough, sore throat, ROBLES , neck pain or stiffness, N/V, CP, SOB, abdominal pain, change in urine, change in BM. Medical history is allergies, GERD, DM - History of Current Complaint Chief Complaint: EDEarPain Time Seen by Provider: 05/31/18 23:56 Hx Obtained From: Patient, Family/Environmental Field Office Manager Onset/Duration: Gradual Onset, Lasting Days Severity: Moderate Associated Signs And Symptoms: Positive: Negative Cough: None Related History: Seasonal Allergies - Allergies/Home Medications Allergies/Adverse Reactions: Allergies Allergy/AdvReac Type Severity Reaction Status Date / Time Adhesive Tape Allergy Intermediate Rash Verified 05/31/18 23:13 latex Allergy Rash Verified 05/31/18 23:13 Sulfa (Sulfonamide Allergy Rash Verified 05/31/18 23:13 Antibiotics) sulfamethoxazole Allergy Hives Verified 05/31/18 23:13 [From Bactrim] trimethoprim [From Bactrim] Allergy Hives Verified 05/31/18 23:13 PMH/Surg Hx/FS Hx/Imm Hx Endocrine/Hematology History: Reports: Hx Diabetes - insulin resistant Cardiovascular History: Denies: Hx Hypertension, Hx Pacemaker/ICD Respiratory History: Reports: Hx Asthma Denies: Hx Chronic Obstructive Pulmonary Disease (COPD) GI History: Reports: Hx Gastroesophageal Reflux Disease - untreated Denies: Hx Crohn's Disease, Hx Gall Bladder Disease, Hx Gastrointestinal Bleed, Hx Ulcer History: Denies: Hx Dialysis, Hx Kidney Infection, Hx Kidney Stones, Hx Renal Disease Musculoskeletal History: Denies: Hx Rheumatoid Arthritis, Hx Osteoporosis Sensory History: Reports: Hx Contacts or Glasses Denies: Hx Hearing Aid Opthamlomology History: Reports: Hx Contacts or Glasses Neurological History: Reports: Hx Headaches Psychiatric History: Reports: Hx Panic Disorder, Other Psychiatric Issues/ Disorders Denies: Hx Eating Disorder, Hx of Violent Episodes Against Others - Surgical History Surgery Procedure, Year, and Place: Tonsillectomy 2002 - Immunization History Date of Tetanus Vaccine: utd Date of Influenza Vaccine: unk Infectious Disease History: No Infectious Disease History: Reports: Hx of Known/Suspected MRSA - Left knee wound age 9 Denies: Hx Clostridium Difficile, Hx Hepatitis, Hx Human Immunodeficiency Virus (HIV), Hx Shingles, Hx Tuberculosis, History Other Infectious Disease, Traveled Outside the [place] in Last 30 Days - Family History Known Family History: Positive: Cardiac Disease, Hypertension Family History: FHx of asthma - Social History Alcohol Use: None Hx Substance Use: No Substance Use Type: Reports: None Hx Tobacco Use: No Smoking Status (MU): Never Smoked Tobacco Have You Smoked in the Last Year: No Review of Systems Positive: Fever Eyes: Negative Positive: Ear Ache Cardiovascular: Negative Respiratory: Negative Gastrointestinal: Negative Genitourinary: Negative Musculoskeletal: Negative Skin: Negative Neurological: Negative Psychological: Normal All Other Systems Reviewed And Are Negative: Yes Physical Exam - Summary Physical Exam Summary: Left ear normal exam. Right ear inflamed ear canal consistent with otitis externa. No discharge noted. Triage Information Reviewed: Yes Vital Signs On Initial Exam: Initial Vitals Temp Pulse Resp BP Pulse Ox 97.3 F 98 16 150/107 99 05/31/18 23:09 05/31/18 23:09 05/31/18 23:09 05/31/18 23:09 05/31/18 23:09 Vital Signs Reviewed: Yes Appearance: Positive: Well-Appearing Skin: Positive: Warm Head/Face: Positive: Normal Head/Face Inspection Eyes: Positive: Normal ENT: Positive: Normal ENT inspection Neck: Positive: Supple Respiratory/Lung Sounds: Positive: Clear to Auscultation Cardiovascular: Positive: Normal Abdomen Description: Positive: Nontender Musculoskeletal: Positive: Normal Neurological: Positive: Normal Psychiatric: Positive: Normal AVPU Assessment: Alert - [place] Coma Scale Best Eye Response: 4 - Spontaneous Best Motor Response: 6 - Obeys Commands Best Verbal Response: 5 - Oriented Coma Scale Total: 15 Diagnostics - Vital Signs Vital Signs Temp Pulse Resp BP Pulse Ox 05/31/18 23:09 97.3 F 98 16 150/107 99 - Laboratory Lab Statement: Any lab studies that have been ordered have been reviewed, and results considered in the medical decision making process. EENT Course/Dx - Course Course Of Treatment: Patient complains of right ear pain 3 days with purulent discharge and low-grade fever. Denies history of recurrent ear infections, cough, sore throat, ROBLES, neck pain or stiffness, N/V, CP, SOB, abdominal pain, change in urine, change in BM. Medical history is allergies, GERD, DM. Physical exam:Left ear normal exam. Right ear inflamed ear canal consistent with otitis externa. No discharge noted. Vital signs within normal limits. Cipro Drops applied. Patient sent home with tube - Diagnoses Provider Diagnoses: Otitis externa Discharge - Sign-Out/Discharge Documenting (check all that apply): Patient Departure - Discharge Plan Condition: Stable Disposition: HOME Patient Education Materials: Otitis Externa (ED) Referrals: Zach Adrian MD [Primary Care Provider] - Additional Instructions: Put 4 antibiotic drops in right ear twice a day for 7 days. Take Tylenol or ibuprofen for pain and fever. Follow-up with primary care. Return to the ED for any new or worsening symptoms - Billing Disposition and Condition Condition: STABLE Disposition: Home
[2018-06-01 00:28] VITALS: BP 148/92
== END 2018-06-01 00:25 | disposition home or self-care (01) ==
LOC: ED 23:05
DX: H60.91 Unspecified otitis externa, right ear (principal); H92.01 Otalgia, right ear
CPT/HCPCS: 99281; A9270-GY

== ENCOUNTER 2018-12-09 11:10 | Emergency (ER) | payer OTHER ==
--- NOTE | 2018-12-09 11:37 | ED ---
Respiratory - HPI Summary HPI Summary: This patient is a 18 year old F presenting to [facility] with a chief complaint of cough since 3 days ago. The patient rates the pain 9/10 in severity. Symptoms aggravated by nothing. Symptoms alleviated by nothing. Patient reports rhinorrhea, sore throat, loss of voice, and cough. Patient denies fever. Patient has hx of asthma. Patient reports she has been taking dulera, albuterol , and mucinex. - History of Current Complaint Chief Complaint: EDUpperRespComplaint Stated Complaint: COUGH/SOB PER PT Time Seen by Provider: 12/09/18 11:19 Hx Obtained From: Patient Onset/Duration: Gradual Onset, Lasting Days - 3 days, Still Present Timing: Constant Initial Severity: Moderate Current Severity: Moderate Pain Intensity: 9 Character: Wheezing, Cough (Productive), Cough (Nonproductive) Aggravating Factor(s): Nothing Alleviating Factor(s): Nothing Associated Signs and Symptoms: Wheezing, Nasal Congestion - Allergy/Home Medications Allergies/Adverse Reactions: Allergies Allergy/AdvReac Type Severity Reaction Status Date / Time Adhesive Tape Allergy Intermediate Rash Verified 12/09/18 11:12 latex Allergy Rash Verified 12/09/18 11:12 Sulfa (Sulfonamide Allergy Rash Verified 12/09/18 11:12 Antibiotics) sulfamethoxazole Allergy Hives Verified 12/09/18 11:12 [From Bactrim] trimethoprim [From Bactrim] Allergy Hives Verified 12/09/18 11:12 Home Medications: Home Medications Desogestrel-Ethinyl Estradiol [Isibloom 28 Day Tablet] 1 each PO DAILY 12/09/18 [History Confirmed 12/09/18] Omeprazole 20 mg PO DAILY 12/09/18 [History Confirmed 12/09/18] PMH/Surg Hx/FS Hx/Imm Hx Endocrine/Hematology History: Reports: Hx Diabetes - insulin resistant Cardiovascular History: Denies: Hx Hypertension, Hx Pacemaker/ICD Respiratory History: Reports: Hx Asthma Denies: Hx Chronic Obstructive Pulmonary Disease (COPD) GI History: Reports: Hx Gastroesophageal Reflux Disease - untreated Denies: Hx Crohn's Disease, Hx Gall Bladder Disease, Hx Gastrointestinal Bleed, Hx Ulcer History: Denies: Hx Dialysis, Hx Kidney Infection, Hx Kidney Stones, Hx Renal Disease Musculoskeletal History: Denies: Hx Rheumatoid Arthritis, Hx Osteoporosis Sensory History: Reports: Hx Contacts or Glasses Denies: Hx Hearing Aid Opthamlomology History: Reports: Hx Contacts or Glasses Neurological History: Reports: Hx Headaches Psychiatric History: Reports: Hx Panic Disorder, Other Psychiatric Issues/ Disorders Denies: Hx Eating Disorder, Hx of Violent Episodes Against Others - Surgical History Surgery Procedure, Year, and Place: Tonsillectomy 2003 - Immunization History Date of Tetanus Vaccine: up to date Date of Influenza Vaccine: 2018 Infectious Disease History: No Infectious Disease History: Reports: Hx of Known/Suspected MRSA - Left knee wound age 9 Denies: Hx Clostridium Difficile, Hx Hepatitis, Hx Human Immunodeficiency Virus (HIV), Hx Shingles, Hx Tuberculosis, History Other Infectious Disease, Traveled Outside the [place] in Last 30 Days - Family History Known Family History: Positive: Cardiac Disease, Hypertension Family History: FHx of asthma - Social History Alcohol Use: None Hx Substance Use: No Substance Use Type: Reports: None Hx Tobacco Use: No Smoking Status (MU): Never Smoked Tobacco Have You Smoked in the Last Year: No Review of Systems Negative: Fever Positive: Sore Throat, Nasal Discharge, Other - soft voice Positive: Cough Negative: Vomiting Negative: Rash All Other Systems Reviewed And Are Negative: Yes Physical Exam - Summary Physical Exam Summary: VITAL SIGNS: Reviewed. GENERAL: Patient is a well-developed and nourished FEMALE who is lying comfortable in the stretcher. Patient is not in any acute respiratory distress. HEAD AND FACE: No signs of trauma. No ecchymosis, hematomas or skull depressions. No sinus tenderness. EYES: PERRLA, EOMI x 2, No injected conjunctiva, no nystagmus. EARS: Hearing grossly intact. Ear canals and tympanic membranes are within normal limits. NOSE: runny nose MOUTH: Oropharynx within normal limits. NECK: Supple, trachea is midline, no adenopathy, no JVD, no carotid bruit, no c- spine tenderness, neck with full ROM. CHEST: Symmetric, no tenderness at palpation LUNGS: Decreased breath sounds bilaterally, wheezing, no crackles. CVS: Regular rate and rhythm, S1 and S2 present, no murmurs or gallops appreciated. ABDOMEN: Soft, non-tender. No signs of distention. No rebound no guarding, and no masses palpated. Bowel sounds are normal. EXTREMITIES: FROM in all major joints, no edema, no cyanosis or clubbing. NEURO: Alert and oriented x 3. No acute neurological deficits. Speech is normal and follows commands. SKIN: Dry and warm Triage Information Reviewed: Yes Vital Signs On Initial Exam: Initial Vitals Temp Pulse Resp BP Pulse Ox 98.3 F 93 22 142/96 98 12/09/18 11:14 12/09/18 11:14 12/09/18 11:14 12/09/18 11:14 12/09/18 11:14 Vital Signs Reviewed: Yes Diagnostics - Vital Signs Vital Signs Temp Pulse Resp BP Pulse Ox 12/09/18 11:14 98.3 F 93 22 142/96 98 - Laboratory Result Diagrams: 12/09/18 12:38 12/09/18 12:38 Lab Statement: Any lab studies that have been ordered have been reviewed, and results considered in the medical decision making process. - Radiology CXR Radiology Interpretation Completed By: Radiologist Summary of Radiographic Findings: No active cardiopulmonary disease. Dr. Street has reviewed this report. Disposition - Course Assessment/Plan: This patient is a 18-year-old female who presents to the emergency room with chief complaint of shortness of breath. The patient reports that shes been having burning nose, sore throat, and the shortness of breath. The patient has history of asthma. Chest x-ray impression: No active cardiopulmonary disease. Blood work without any significant abnormality except 4 CRP of 14.02. Urinalysis is negative for UTI. In the ED course the patient was given DuoNebs and so emergent. After these medications the patients symptoms have improved. Therefore the patient will be discharged home with follow-up with primary care physician. I discussed all the findings and test results with the patient. Patient was instructed to return to the emergency room immediately if any of the symptoms return worsens. Plan of care was discussed with the patient and understands and agrees. All questions were answered at patient satisfaction. There were no further complaints or concerns. Lung exam before discharge: CTA B/L. Good air exchange. No wheezing or crackles heard. CVS: S1 and S2 present. No murmurs appreciated. Patient is alert and oriented x 3. Patient is hemodynamically stable. Patient will be discharged home with follow up PCP in the next 2-3 days - Diagnoses Provider Diagnoses: Asthma exacerbation Discharge - Sign-Out/Discharge Documenting (check all that apply): Patient Departure - Discharge Patient Received Moderate/Deep Sedation with Procedure: No - Discharge Plan Condition: Stable Disposition: HOME Prescriptions: Albuterol/Ipratropium NEB.WILBER* [Duoneb (Albuterol 2.5 MG/Ipratropium 0.5 MG)] 1 neb INH Q4H PRN #1 laure PRN Reason: Wheezing predniSONE TAB* [Deltasone 20 MG TAB*] 40 mg PO DAILY #10 tab Patient Education Materials: Asthma (ED) Referrals: Sylvia Marsh MD [Primary Care Provider] - 2 Days Additional Instructions: Follow up with your primary care provider in 2-3 days. Return to the Emergency Department for new or worsening symptoms. - Billing Disposition and Condition Condition: STABLE Disposition: Home - Attestation Statements Document Initiated by Scribe: Yes Documenting Scribe: Lizzy Brandon Provider For Whom Robert is Documenting (Include Credential): Marc Street MD Scribe Attestation: Lizzy Cristobal, scribed for Marc Street MD on 12/09/18 at 1625. Scribe Documentation Reviewed: Yes Provider Attestation: The documentation as recorded by the scribeLizzy accurately reflects the service I personally performed and the decisions made by Marc callejas MD Status of Scribe Document: Viewed
[2018-12-09] MEDS ORDERED: Albuterol/Ipratropium NEB.SOL* Albuterol 2.5 MG/Ipratropium 0.5 MG 3 ML INH ONE (11:45)
[2018-12-09] MEDS ORDERED: methylPREDNISolone 125 MG* 2 ML VIAL IV ONE (11:45)
[2018-12-09 13:17] LABS: ALT 20 U/L (7-52); AST 15 U/L (13-39); Albumin 4.3 g/dL (3.2-5.2); Albumin/Globulin Ratio 1.5 (1-3); Alkaline Phosphatase 84 U/L (34-104); Anion Gap 9 mmol/L (2-11); BUN/Creatinine Ratio 13.3 (8-20); Blood Urea Nitrogen 8 mg/dL (6-24); C Reactive Protein 14.02 mg/L (<8.01); CO2 Carbon Dioxide 26 mmol/L (22-32); Calcium 9.2 mg/dL (8.6-10.3); Chloride 104 mmol/L (101-111); EGFR African American 154.2 (>60); EGFR Non-African American 127.5 (>60); Globulin 2.9 g/dL (2-4); Glucose 80 mg/dL (70-100); Potassium 3.6 mmol/L (3.5-5.0); Sodium 139 mmol/L (135-145); Total Protein 7.2 g/dL (6.4-8.9)
[2018-12-09 13:18] LABS: HCG Pregnancy < 0.60 mIU/mL
[2018-12-09 13:26] LABS: ABS Basophils 0.1 10^3/ul (0-0.2); ABS Eosinophils 0.1 10^3/ul (0-0.6); ABS Lymphocytes 2.6 10^3/ul (1.0-4.8); ABS Monocytes 0.8 10^3/ul (0-0.8); ABS Neutrophils 7.1 10^3/ul (1.5-7.7); ABS Nucleated RBC 0 10^3/ul; Eosinophil % 1.4 %; Hematocrit 41 % (33-41); Lymphocyte % 23.9 %; Mean Corpuscular HGB Conc 34 g/dL (31-36); Mean Corpuscular Hemoglobin 28 pg (27-31); Mean Corpuscular Volume 82 fL (80-97); Mean Platelet Volume 7.9 fL (7.4-10.4); Nucleated Red Blood Cells % 0.2; Platelet Count 310 10^3/uL (150-450); Red Blood Count 4.98 10^6 /uL (3.70-4.87); Red Cell Distribution Width 13 % (10.5-15); White Blood Count 10.7 10^3/uL (3.5-10.8)
[2018-12-09 13:40] LABS: Urine Appearance Cloudy; Urine Bacteria Absent (Absent); Urine Bilirubin Negative (Negative); Urine Blood 3+ (Negative); Urine Color Yellow; Urine Glucose Negative (Negative); Urine Ketones Negative (Negative); Urine Nitrite Negative (Negative); Urine Protein 1+(30 mg/dL) (Negative); Urine Red Blood Cell 3+(>10/hpf) (Absent); Urine Specific Gravity 1.024 (1.010-1.030); Urine Squamous Epithelial Cell Present (Absent); Urine Urobilinogen Negative (Negative); Urine White Blood Cell Trace(0-5/hpf) (Absent)
[2018-12-09 15:04] VITALS: BP 144/76
== END 2018-12-09 15:04 | disposition home or self-care (01) ==
LOC: ED 11:10
DX: J45.901 Unspecified asthma with (acute) exacerbation (principal); E11.9 Type 2 diabetes mellitus without complications; K21.9 Gastro-esophageal reflux disease without esophagitis; Z88.2 Allergy status to sulfonamides; Z88.8 Allergy status to other drugs, medicaments and biological substances; Z91.040 Latex allergy status; Z79.899 Other long term (current) drug therapy
CPT/HCPCS: 36415; 71046; 80053; 81003; 81015; 83605; 84702; 85025; 86140; 87086; 96374; 99283; J2930

== ENCOUNTER 2019-08-08 10:33 | Emergency (ER) | payer OTHER ==
--- OUTSIDE RECORDS SUMMARY | 2019-08-08 10:53 | XMS REPORT | Continuity of Care Document ---
:2000 External Reference #:[id number] Author Name Karine Marley N.P. 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 Onset: 11/19/2017 Gastroesophageal reflux disease Zach Adrian M.D. Onset: 11/19/2017 Low back pain Zach Adrian M.D. Onset: 11/19/2017 Hypoglycemia Zach Adrian M.D. Onset: 11/19/2017 Asthma without status asthmaticus Zach Adrian M.D. Onset: 11/30/2017 Anxiety state Zach Adrian M.D. Onset: 12/13/2017 Morbid obesity Zach Adrian M.D. Onset: 12/13/2017 Sciatica Zach Adrian M.D. Onset: 03/22/2018 Plantar fascial fibromatosis Dionisio Shelton MD Onset: 03/29/2018 Tibialis tendinitis Dionisio Shelton MD Onset: 03/29/2018 Social History Type Date Description Comments Sex Unknown ETOH Use Denies alcohol use Tobacco Use Start: Unknown Patient has never smoked Smoking Status Reviewed: 06/15/19 Patient has never smoked Exercise Type/Frequency Exercises rarely Allergies, Adverse Reactions, Alerts Active Allergies Reaction Severity Comments Date Sulfa Antibiotics 05/17/2017 Adhesive 11/19/2017 Latex hives 11/19/2017 Bactrim hives 11/19/2017 Medications Active Medications SIG Qnty Indications Ordering Date Provider Venlafaxine HCL ER 2 by mouth every day 21caps F41.1 Karine Marley, 2018 for 7 days then 1 N.P. 37.5mg Caps ER 24HR daily for 7 days Paroxetine HCL 1 tablets by mouth 30tabs F41.1 Karine Donell, 06/15/2019 20mg every day N.P. Tablets Nebulizer use for albuterol 1units J45.20 Sandro Sims NP 06/07/2019 Device nebulized solution up to 4 times a day. Nebulizer for use 4 times 1units J45.20 Sandro Sims NP 06/07/2019 Kit/Tubing/Mouthpie daily as needed ce Kit Albuterol Sulfate 1 vial via nebulizer 75ml J06.9 Sandro Sims NP 2018 4 times daily as (2.5mg/3ML) 0.083% needed Nebulizer Sumatriptan One tablet at onset 9tabs G43.009 Sandro Sims NP 06/07/2019 Succinate of migraine. December 25mg repeat in two hours Tablets if first dose not effective. DO Not Take More Than $ Times A Month Hydroxyzine HCL 1 tablets by mouth 60tabs F41.1 Karine Osbornreuben, 04/14/2019 every 6-8 hours as N.P. 25mg Tablets needed for anxiety Naproxen twice a day with 60tabs M54.31 Zach 03/22/2018 375mg romulo Adrian M.D. Tablets Dulera 2 puff twice a day 8.800gm J45.909 Sandro Sims NP 12/13/2017 200-5mcg/Act Aerosol Ventolin HFA 2 puffs by mouth 8gm J06.9 Chioma Monge MD 11/30/2017 four times a day as 108(90Base) mcg/Act needed/use with Aerosol spacer Omeprazole 1 by mouth every day 30caps K21.9 Chioma Monge MD 11/19/2017 20mg 1 h before breakfast Capsules Depo-Prove one vial Unknown intramuscular x 1 150mg/ml Suspension every 3 months History Medications Venlafaxine HCL ER 1 by mouth 30caps F41.1 Karine Marley, 04/17/2019 - every day N.P. 06/15/2019 150mg Caps ER 24HR Venlafaxine HCL ER 1 by mouth 30tabs F41.1 Karine Marley, 04/14/2019 - every day N.P. 04/17/2019 150mg Tablets ER 24HR Immunizations CPT Code Status Date Vaccine Reaction Lot # [id number] Given 05/25/2019 Influenza Virus Vaccine, Quadrivalent, Split, Preservative Free [id number] Given 10/13/2018 Tdap - No immediate [id number] Tetanus/Diptheria/Acellular reaction...jh Pertussis Vital Signs Date Vital Result Comment 06/15/2019 8:27am Height 64 inches 5'4" Weight 241.00 lb Heart Rate 88 /min BP Systolic Sitting 136 mmHg Rue lg cuff BP Diastolic Sitting 90 mmHg Rue lg cuff O2 % BldC Oximetry 98 % BMI (Body Mass Index) 41.4 kg/m2 06/07/2019 3:07pm Height 64 inches 5'4" Weight 241.38 lb Heart Rate 94 /min BP Systolic 138 mmHg BP Diastolic 84 mmHg Body Temperature 98.8 F O2 % BldC Oximetry 99 % BMI (Body Mass Index) 41.4 kg/m2 Results Description No Information Available Procedures Description No Information Available Medical Devices Description No Information Available Encounters Type Date Location Provider Dx Diagnosis Office Visit 06/07/2019 [facility] Internal Sandro Sims NP J45.20 Mild intermittent 2:40p Medicine - Ccmob asthma, uncomplicated J06.9 Acute upper respiratory infection, unspecified G43.009 Migraine w/o aura, not intractable, w/o status migrainosus Office Visit 04/14/2019 10:20a [facility] Internal Karine Marley, F41.1 Generalized Medicine - N.P. anxiety disorder Ccmob Z30.09 Encounter for oth general coun and advice on contraception Office Visit 03/08/2019 10:20a [facility] Internal Medicine Chioma Monge MD N64.4 Mastodynia - Ccmob Assessments Date Code Description Provider 06/15/2019 F41.1 Generalized anxiety disorder Karine Marley, N.P. 06/15/2019 N92.6 Irregular menstruation, unspecified Karine Marley N.P. 06/15/2019 J45.20 Mild intermittent asthma, uncomplicated Karine Marley N.P. 06/07/2019 J45.20 Mild intermittent asthma, uncomplicated Sandro Levi, HOT ROLL LAMINATOR 06/07/2019 J06.9 Acute upper respiratory infection, unspecified Sandro Levi, HOT ROLL LAMINATOR 06/07/2019 G43.009 Migraine without aura, not intractable, Sandro Sims, HOT ROLL LAMINATOR without status migrainosus 04/14/2019 F41.1 Generalized anxiety disorder Karine Marley N.P. 04/14/2019 Z30.09 Encounter for other general counseling and Karine Marley N.P. advice on contraception 03/08/2019 N64.4 Mastodynia Chioma Monge MD Plan of Treatment Future Appointment(s):07/14/2019 11:00 am - Karine Marley NLuna. at [facility] Internal Medicine - [facility]06/15/2019 - Reuben Gutierres.Hayde.F41.1 Generalized anxiety disorderNew Medication:Venlafaxine HCL ER 37.5 mg - 2 by mouth every day for 7 days then 1 daily for 7 daysParoxetine HCL 20 mg - 1 tablets by mouth every dayComments:To help you with your anxiety I want to slowly wean you off Venlafaxine. I have sent a new prescription in for 37.5 dose. For the first week take 2 tablets, then go down to 1 tablet for another 7 days,then stop.I have sent a prescription in for Paroxetine 20 mg. Start taking this when you go down to 1 tablet of Venlafaxine. Start with a half tablet for the first 7 days, then boost it to a full tablet. Paroxetine 20 mg will be your maintenance dose.I want you to get yourself set up with the mental health department again.Follow up:4 gnigsY91.6 Irregular menstruation, unspecifiedComments:To be sure you are not I have ordered a blood test to screen for this. I have also ordered a complete blood count and a thyroid level. I will contact you with your results.J45.20 Mild intermittent asthma, uncomplicatedComments: For your asthma:Continue your current management. If at any point you find you need to use your rescue inhaler more than twice weekly on a regular basis, please call the office. This indicates your asthma is not adequately controlled. 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 She is Sent 04/2019 interested in starting Depo Provera. [address] [place] [address] [place] [address] [phone]
--- OUTSIDE RECORDS SUMMARY | 2019-08-08 10:53 | XMS REPORT ---
:1998 Author Organization [facility] Care Team Providers Name Role Phone Mariana Higginbotham Primary Care Physician Unavailable Allergies, Adverse Reactions, Alerts Allergy Code CodeSystem Reaction Severity Criticality Status Start Substance Date Moderate Medications Medication Medication Medication Start Stop Route Dose Status Fill Code CodeSystem Date Date Instructions RxNorm Problems Problem Name Code CodeSystem Alternate Alternate Start End Status Narrative Code CodeSystem Date Date Dysthymia 25668778 SNOMED-CT Active 3-22 Binge eating 82158044 SNOMED-CT Active disorder 3 Unspecified 11622601 SNOMED-CT 2018-08 Active anxiety 0-21 disorder Dysthymia 44999164 SNOMED-CT Active 11-18 Binge eating 24822539 SNOMED-CT Active disorder 3-27 Dysthymia 69016622 SNOMED-CT Active 22 Relevant diagnostic tests/laboratory data Narrative No Information Procedures Procedure Code CodeSystem Target Date of Status Service Device Device Device Name Site Procedure Delivery Code Name UID Location Psychother 6038469 SNOMED-CT () 2019-06-26 completed Mental apy, 45 4 Health- minutes Robert with [address], [id number] Psychother 8817050 SNOMED-CT () 2019-07-03 completed Mental apy, 45 4 Health- minutes Morris with [facility] patient [address] [place] [address], [id number] [id number] SNOMED-CT () [facility] [address], [phone] [id number] Encounters/Encounter Diagnoses Encounter Name Encounter Diagnosis Diagnosis Diagnosis Date of Service Code Code Name CodeSystem Diagnosis Delivery Location Psychotherapy - 93903 [id number] Unspecified SNOMED-CT 2019-07-17 Behavioral Individual 30 anxiety Health min disorder Clinic , , , Vital Signs No Information Social History Element Description Description Start End Code CodeSystem AdditionalInfo Date Date SexAssignedAtBirth Female F AdministrativeGender 12-04 Hospital Discharge Instructions Reason For Referral Medical Equipment FDA Assessments
--- OUTSIDE RECORDS SUMMARY | 2019-08-08 10:53 | XMS REPORT | Continuity of Care Document ---
:1998 External Reference #:[id number] Author Name Karine Marley N.P. (transmitted by agent of provider Angeline Cummins) Address [address] [facility] [facility], [place] [address] Care Team Providers Name Role Phone [facility] [place] - Sleep Disorder Care Team Information Addiction Specialist [phone] Diagnostic [facility] - Care Team Information Addiction Specialist [phone] Therapist Chioma Monge MD - Internal Medicine Care Team Information Addiction Specialist Problems Active Problems Provider Date Asthma without status asthmaticus Zach Adrian M.D. Onset: 11/30/2017 Anxiety state Zach Adrian M.D. Onset: 12/13/2017 Insomnia Zach Adrian M.D. Onset: 11/19/2017 Gastroesophageal reflux disease Zach Adrian M.D. Onset: 11/19/2017 Low back pain Zach Adrian M.D. Onset: 11/19/2017 Hypoglycemia Zach Adrian M.D. Onset: 11/19/2017 Morbid obesity Zach Adrian M.D. Onset: 12/13/2017 Sciatica Zach Adrian M.D. Onset: 03/22/2018 Plantar fascial fibromatosis Dionisio Shelton MD Onset: 03/29/2018 Tibialis tendinitis Dionisio Shelton MD Onset: 03/29/2018 Social History Type Date Description Comments Sex Unknown ETOH Use Denies alcohol use Tobacco Use Start: Unknown Patient has never smoked Smoking Status Reviewed: 07/14/19 Patient has never smoked Exercise Type/Frequency Exercises rarely Allergies, Adverse Reactions, Alerts Active Allergies Reaction Severity Comments Date Sulfa Antibiotics 05/17/2017 Adhesive 11/19/2017 Latex hives 11/19/2017 Bactrim hives 11/19/2017 Medications Active Medications SIG Qnty Indications Ordering Date Provider Control Pill Karine Osbornkhai, 07/14/[address] polanco by mouth every 60tabs M54.31 Karine Donell, 07/14/2019 500mg 12 hours as needed N.P. Tablets DR diaz Tizanidine HCL take 1 tablet by 30tabs M54.5 Karine Anuragkhai, 07/14/2019 4mg mouth every 8 N.P. Tablets hours as needed Fluticasone 2 sprays each 16gm H92.03 Karine Donell, 07/14/2019 Propionate nostril daily as N.P. 50mcg/Act needed Suspension Nebulizer use for albuterol 1units J45.20 Sandro Sims NP 06/07/2019 Device nebulized solution up to 4 times a day. Nebulizer for use 4 times 1units J45.20 Sandro Sims NP 06/07/2019 Kit/Tubing/Mouthpiec daily as needed e Kit Albuterol Sulfate 1 vial via 75ml J06.9 Sandro Sims NP 06/07/2019 nebulizer 4 times (2.5mg/3ML) 0.083% daily as needed Nebulizer Sumatriptan One tablet at 9tabs G43.009 Sandro Sims NP 06/07/2019 Succinate onset of migraine. 25mg May repeat in two Tablets hours if first dose not effective. DO Not Take More Than $ Times A Month Hydroxyzine HCL 1 tablets by mouth 60tabs F41.1 Karine Donell, 04/14/2019 25mg every 6-8 hours as N.P. Tablets needed for anxiety Dulera 2 puff twice a day 8.800gm J45.909 Sandro Sims NP 12/13/2017 200-5mcg/Act Aerosol Ventolin HFA 2 puffs by mouth 8gm J06.9 Chioma Monge MD 11/30/2017 four times a day 108(90Base) mcg/Act as needed/use with Aerosol spacer Omeprazole 1 by mouth every 30caps K21.9 Chioma Monge MD 11/19/2017 20mg day [address] breakfast History Medications Venlafaxine HCL ER 2 by mouth every 21caps F41.1 Karine Marley, 2018 - day for 7 days N.P. 06/29/2019 37.5mg Caps ER 24HR then 1 daily for 7 days Paroxetine HCL 1 tablets by 30tabs F41.1 Karine Osbornn, 06/15/2019 - 20mg mouth every day N.P. 07/13/2019 Tablets Venlafaxine HCL ER 1 by mouth every 30caps F41.1 Karine Varn, 2018 - day N.P. 06/15/2019 150mg Caps ER 24HR Venlafaxine HCL ER 1 by mouth every 30tabs F41.1 Karine Varn, 2018 - day N.P. 04/17/2019 150mg Tablets ER 24HR Immunizations CPT Code Status Date Vaccine Reaction Lot # [id number] Given 05/25/2019 Influenza Virus Vaccine, Quadrivalent, Split, Preservative Free [id number] Given 10/13/2018 Tdap - No immediate [id number] Tetanus/Diptheria/Acellular reaction...jh Pertussis Vital Signs Date Vital Result Comment 07/14/2019 10:59am Height 64 inches 5'4" Weight 245.00 lb Heart Rate 88 /min BP Systolic Sitting 129 mmHg BP Diastolic Sitting 85 mmHg Body Temperature 97.6 F O2 % BldC Oximetry 98 % BMI (Body Mass Index) 42.0 kg/m2 06/15/2019 8:27am Height 64 inches 5'4" Weight 241.00 lb Heart Rate 88 /min BP Systolic Sitting 136 mmHg Rue lg cuff BP Diastolic Sitting 90 mmHg Rue lg cuff O2 % BldC Oximetry 98 % BMI (Body Mass Index) 41.4 kg/m2 Results Test Acquired Date Facility Test Result H/L Range Note Laboratory test 06/17/2019 [facility] HCG < 0.60 [address] mIU/[place] [address] [phone] TSH (Thyroid Stim Horm) 0.99 mcIU/mL Normal 0.34-5.60 CBC Auto 06/17/2019 [facility] White Blood 8.9 10^3/uL Normal 3.5-10.[address] [place] [address] [phone] Red Blood Count 5.22 10^6/uL High 3.70-4.87 Hemoglobin 14.9 g/dL Normal 12.0-16.0 Hematocrit 43 % Normal 35-47 Mean Corpuscular Volume 83 fL Normal 80-97 Mean Corpuscular Hemoglobin 29 pg Normal 27-31 Mean Corpuscular HGB Conc 34 g/dL Normal 31-36 Red Cell Distribution Width 13 % Normal 10-15 Platelet Count 322 10^3/uL Normal 150-450 Mean Platelet Volume 7.8 fL Normal 7.4-10.4 Abs Neutrophils 5.6 10^3/uL Normal 1.5-7.7 Abs Lymphocytes 2.5 10^3/uL Normal 1.0-4.8 Abs Monocytes 0.6 10^3/uL Normal 0-0.8 Abs Eosinophils 0.2 10^3/uL Normal 0-0.6 Abs Basophils 0.1 10^3/uL Normal 0-0.2 Abs Nucleated RBC 0.0 10^3/uL Granulocyte % 62.5 % Lymphocyte % 27.8 % Monocyte % 6.8 % Eosinophil % 2.1 % Basophil % 0.8 % Nucleated Red Blood Cells % 0.0 1 <5.0 Negative 5.0 - 25.0 Indeterminate (Repeat testing recommended after 72 hours) >25.0 Positive Perimenopausal women can display HCG levels of up to 20 mIU/mL Procedures Description No Information Available Medical Devices Description No Information Available Encounters Type Date Location Provider Dx Diagnosis Office Visit 06/15/2019 [facility] Internal Karine Marley, F41.1 Generalized anxiety 8:40a Medicine - Ccmob N.P. disorder N92.6 Irregular menstruation, unspecified J45.20 Mild intermittent asthma, uncomplicated Office Visit 06/07/2019 2:40p [facility] Internal Sandro Sims, J45.20 Mild intermittent Medicine - INSTRUMENTATION SPECIALIST asthma, Ccmob uncomplicated J06.9 Acute upper respiratory infection, unspecified G43.009 Migraine w/o aura, not intractable, w/o status migrainosus Office Visit 04/14/2019 10:20a [facility] Internal Karine Marley, F41.1 Generalized Medicine - N.P. anxiety disorder Ccmob Z30.09 Encounter for ot general coun and advice on contraception Office Visit 03/08/2019 10:20a [facility] Internal Medicine Chioma Monge MD N64.4 Mastodynia - Ccmob Assessments Date Code Description Provider 07/14/2019 F41.1 Generalized anxiety disorder Karine Marley, N.P. 07/14/2019 M54.5 Low back pain Karine Marley, N.P. 07/14/2019 H92.03 Otalgia, bilateral Karine Marley, N.P. 07/14/2019 Z68.41 Body mass index (BMI) 40.0-44.9, adult Karine Marley, N.P. 06/15/2019 F41.1 Generalized anxiety disorder Karine Marley, N.P. 06/15/2019 N92.6 Irregular menstruation, unspecified Karine Marley, N.P. 06/15/2019 J45.20 Mild intermittent asthma, uncomplicated Karine Marley, N.P. 06/07/2019 J45.20 Mild intermittent asthma, uncomplicated Sandro Levi, INSTRUMENTATION SPECIALIST 06/07/2019 J06.9 Acute upper respiratory infection, unspecified Sandro Levi, INSTRUMENTATION SPECIALIST 06/07/2019 G43.009 Migraine without aura, not intractable, Sandro Levi, INSTRUMENTATION SPECIALIST without status migrainosus 04/14/2019 F41.1 Generalized anxiety disorder Karine Marley, N.P. 04/14/2019 Z30.09 Encounter for other general counseling and Karine Marley, N.P. advice on contraception 03/08/2019 N64.4 Mastodynia Chioma Monge MD Plan of Treatment 07/14/2019 - Karine Marley, N.P.F41.1 Generalized anxiety disorderComments:For your anxiety:Continue your current management with the Mental Health specialists.M54.5 Low back painNew Medication:Tizanidine HCL 4 mg - take 1 tablet by mouth every 8 hours as neededNew Therapy:Physical TherapyComments:For your back pain:I am referring you for physical therapy. I have increased your dose of Naproxen to 500 mg. You may take this twice daily. In addition I prescribed Tizanidine 4 mg, a muscle relaxant.This may be sedating.If you do not gradually improve, please contact the office.H92.03 Otalgia, bilateralNew Medication:Fluticasone Propionate 50 mcg/Act - 2 sprays each nostril daily as neededComments:To help you with you ear pain and sinus congestion I have prescribed a steroid nasal spray, Fluticasone. Use 2 inhalations in each nostril , once daily, until you are feeling better.Z68.41 Body mass index (BMI) 40.0- 44.9, adultComments:I have referred you to [facility] for a weight loss program.Referral:[facility], Therapist Functional Status Description No Information Available Mental Status Description No Information Available Referrals Refer to Reason for Referral Status Appt Date [facility] Patient has a BMI of 42, referred Sent for medically managed weight loss. 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 She is Sent 04/2019 interested in starting Depo Provera. [address] [place], [place] [address] [phone]
[2019-08-08 11:43] LABS: ABS Basophils 0.1 10^3/ul (0-0.2); ABS Eosinophils 0.3 10^3/ul (0-0.6); ABS Monocytes 0.8 10^3/ul (0-0.8); ABS Neutrophils 5.4 10^3/ul (1.5-7.7); Eosinophil % 2.9 %; Hematocrit 41 % (35-47); Hemoglobin 14.4 g/dL (12.0-16.0); Lymphocyte % 31.4 %; Mean Corpuscular HGB Conc 35 g/dL (31-36); Mean Corpuscular Hemoglobin 29 pg (27-31); Mean Corpuscular Volume 83 fL (80-97); Mean Platelet Volume 8.1 fL (7.4-10.4); Platelet Count 334 10^3/uL (150-450); Red Blood Count 4.98 10^6 /uL (3.70-4.87); Red Cell Distribution Width 13 % (10-15); White Blood Count 9.5 10^3/uL (3.5-10.8)
[2019-08-08 12:04] LABS: HCG Pregnancy < 0.60 mIU/mL
[2019-08-08 12:37] LABS: ALT 18 U/L (7-52); AST 14 U/L (13-39); Albumin 4.2 g/dL (3.2-5.2); Albumin/Globulin Ratio 1.6 (1-3); Alkaline Phosphatase 61 U/L (34-104); Anion Gap 10 mmol/L (2-11); BUN/Creatinine Ratio 16.4 (8-20); Blood Urea Nitrogen 11 mg/dL (6-24); CO2 Carbon Dioxide 25 mmol/L (22-32); Calcium 9.5 mg/dL (8.6-10.3); Chloride 104 mmol/L (101-111); EGFR African American 135.8 (>60); EGFR Non-African American 112.2 (>60); Globulin 2.7 g/dL (2-4); Glucose 93 mg/dL (70-100); Potassium 3.8 mmol/L (3.5-5.0); Sodium 139 mmol/L (135-145); Total Protein 6.9 g/dL (6.4-8.9)
--- NOTE | 2019-08-08 13:38 | ED ---
Abdominal Pain/Female - HPI Summary HPI Summary: A 18-year-old female with significant past medical history of migraines, PCOS presents to the emergency Department today with chief complaint of right lower quadrant abdominal pain. Patient states 3 days ago she began having mild cramping feeling in the right lower quadrant and when she woke up today it was much worse. She states her pain is an 8 out of 10" cramping feeling". She endorses vaginal bleeding which began while in the emergency department waiting room approximately 40 minutes ago. She also endorses breast tenderness, heartburn but denies fever. She states she is unsure if she is having her period as she is transitioning from Depo-Provera to oral contraception. Patient denies chest pain, shortness of breath, vomiting, diarrhea, urination. - History of Current Complaint Chief Complaint: EDAbdPain Stated Complaint: UNKOWN PREG CRAMPS Time Seen by Provider: 08/08/19 13:37 Hx Obtained From: Patient Hx Last Menstrual Period: 08/02/17 Onset/Duration: Gradual Onset, Lasting Days Timing: Constant Severity Initially: Mild Severity Currently: Severe Pain Intensity: 8 Pain Scale Used: 0-10 Numeric Location: Discrete At: RLQ Radiates: No Character: Sharp, Cramping Aggravating Factor(s): Movement Alleviating Factor(s): Position Associated Signs and Symptoms: Positive: Vaginal Bleeding. Negative: Diaphoresis, Fever, Cough, Chest Pain, Blood in Stool, Urinary Symptoms, Nausea Allergies/Adverse Reactions: Allergies Allergy/AdvReac Type Severity Reaction Status Date / Time Adhesive Tape Allergy Intermediate Rash Verified 08/08/19 10:37 latex Allergy Rash Verified 08/08/19 10:37 Sulfa (Sulfonamide Allergy Rash Verified 08/08/19 10:37 Antibiotics) Home Medications: Home Medications Albuterol 2.5MG/3ML (0.083%)* [Ventolin 2.5 MG/3 ML NEB.WILBER*] 2.5 mg INH Q6H PRN 08/08/19 [History Confirmed 08/08/19] Albuterol HFA INHALER* [Ventolin HFA Inhaler*] 1 puff INH Q4H PRN 08/08/19 [ History Confirmed 08/08/19] FLUoxetine CAP* [PROzac CAP*] 40 mg PO DAILY 08/08/19 [History Confirmed ] Naproxen [Naproxen 500 mg tab] 500 mg PO BID PRN 08/08/19 [History Confirmed 06/17] Norgestimate-Ethinyl Estradiol [Norg-Ee 0.18-0.215-0.25/0.035] 1 tab PO DAILY [History Confirmed 08/08/19] SUMAtriptan TAB* [Imitrex TAB*] 25 mg PO SEE INSTRUCTIONS 08/08/19 [History Confirmed 08/08/19] hydrOXYzine HCL [Hydroxyzine HCl] 10 mg PO BID 08/08/19 [History Confirmed 08/08] PMH/Surg Hx/FS Hx/Imm Hx Endocrine/Hematology History: Reports: Hx Diabetes - insulin resistant Cardiovascular History: Denies: Hx Hypertension, Hx Pacemaker/ICD Respiratory History: Reports: Hx Asthma Denies: Hx Chronic Obstructive Pulmonary Disease (COPD) GI History: Reports: Hx Gastroesophageal Reflux Disease - untreated Denies: Hx Crohn's Disease, Hx Gall Bladder Disease, Hx Gastrointestinal Bleed, Hx Ulcer History: Denies: Hx Dialysis, Hx Kidney Infection, Hx Kidney Stones, Hx Renal Disease Musculoskeletal History: Denies: Hx Rheumatoid Arthritis, Hx Osteoporosis Sensory History: Reports: Hx Contacts or Glasses Denies: Hx Hearing Aid Opthamlomology History: Reports: Hx Contacts or Glasses Neurological History: Reports: Hx Headaches Psychiatric History: Reports: Hx Panic Disorder, Other Psychiatric Issues/ Disorders Denies: Hx Eating Disorder, Hx of Violent Episodes Against Others - Surgical History Surgery Procedure, Year, and Place: Tonsillectomy 2002 - Immunization History Date of Tetanus Vaccine: up to date Date of Influenza Vaccine: 2018 Infectious Disease History: No Infectious Disease History: Reports: Hx of Known/Suspected MRSA - Left knee wound age 9 Denies: Hx Clostridium Difficile, Hx Hepatitis, Hx Human Immunodeficiency Virus (HIV), Hx Shingles, Hx Tuberculosis, History Other Infectious Disease, Traveled Outside the [place] in Last 30 Days - Family History Known Family History: Positive: Cardiac Disease, Hypertension Family History: FHx of asthma - Social History Alcohol Use: None Hx Substance Use: No Substance Use Type: Reports: None Hx Tobacco Use: No Smoking Status (MU): Never Smoked Tobacco Have You Smoked in the Last Year: No Review of Systems Constitutional: Negative Eyes: Negative ENT: Negative Cardiovascular: Negative Respiratory: Negative Positive: Abdominal Pain Genitourinary: Negative Musculoskeletal: Negative Skin: Negative Neurological: Negative Psychological: Normal All Other Systems Reviewed And Are Negative: Yes Physical Exam - Summary Physical Exam Summary: Inspection reveals no ecchymosis or masses. Auscultation reveals normoactive bowel sounds. Palpation reveals tenderness in the right lower quadrant and left lower quadrant. Negative Leblanc's sign, negative obturator, psoas, Rovsing sign and no rebound tenderness at McBurney's point. Triage Information Reviewed: Yes Vital Signs On Initial Exam: Initial Vitals Temp Pulse Resp BP Pulse Ox 98.1 F 84 16 160/98 98 08/08/19 10:37 08/08/19 10:37 08/08/19 10:37 08/08/19 10:37 08/08/19 10:37 Vital Signs Reviewed: Yes Appearance: Positive: Well-Appearing, No Pain Distress, Well-Nourished, Obese Skin: Positive: Warm, Skin Color Reflects Adequate Perfusion Eyes: Positive: EOMI, JAN ENT: Positive: Hearing grossly normal Respiratory/Lung Sounds: Positive: Clear to Auscultation, Breath Sounds Present Cardiovascular: Positive: RRR, S1, S2 Abdomen Description: Positive: Soft. Negative: Distended, Guarding, Peritoneal Signs Bowel Sounds: Positive: Present Musculoskeletal: Positive: Normal, Strength/ROM Intact Neurological: Positive: Sensory/Motor Intact, Alert, Oriented to Person Place, Time, Normal Gait, Facial Symmetry, Speech Normal Psychiatric: Positive: Normal AVPU Assessment: Alert Procedures - Sedation Patient Received Moderate/Deep Sedation with Procedure: No Diagnostics - Vital Signs Vital Signs Temp Pulse Resp BP Pulse Ox 08/08/19 12:40 98.1 F 78 16 183/107 99 08/08/19 10:37 98.1 F 84 16 160/98 98 - Laboratory Lab Results: Lab Results 08/08/19 08/08/19 Range/Units 11:21 11:21 WBC 9.5 (3.5-10.8) 10^3/uL RBC 4.98 H (3.70-4.87) 10^6 /uL Hgb 14.4 (12.0-16.0) g/dL Hct 41 (35-47) % MCV 83 (80-97) fL MCH 29 (27-31) pg MCHC 35 (31-36) g/dL RDW 13 (10-15) % Plt Count 334 (150-450) 10^3/uL MPV 8.1 (7.4-10.4) fL Neut % (Auto) 56.6 % Lymph % (Auto) 31.4 % [place] % (Auto) 8.1 % Eos % (Auto) 2.9 % Baso % (Auto) 1.0 % Absolute Neuts (auto) 5.4 (1.5-7.7) 10^3/ul Absolute Lymphs (auto) 3.0 (1.0-4.8) 10^3/ul Absolute Monos (auto) 0.8 (0-0.8) 10^3/ul Absolute Eos (auto) 0.3 (0-0.6) 10^3/ul Absolute Basos (auto) 0.1 (0-0.2) 10^3/ul Absolute Nucleated RBC 0.0 10^3/ul Nucleated RBC % 0.0 Sodium 139 (135-145) mmol/L Potassium 3.8 (3.5-5.0) mmol/L Chloride 104 (101-111) mmol/L Carbon Dioxide 25 (22-32) mmol/L Anion Gap 10 (2-11) mmol/L BUN 11 (6-24) mg/dL Creatinine 0.67 (0.51-0.95) mg/dL Est GFR ( Amer) 135.8 (>60) Est GFR (Non-Af Amer) 112.2 (>60) BUN/Creatinine Ratio 16.4 (8-20) Glucose 93 (70-100) mg/dL Calcium 9.5 (8.6-10.3) mg/dL Total Bilirubin 0.70 (0.2-1.0) mg/dL AST 14 (13-39) U/L ALT 18 (7-52) U/L Alkaline Phosphatase 61 (34-104) U/L Total Protein 6.9 (6.4-8.9) g/dL Albumin 4.2 (3.2-5.2) g/dL Globulin 2.7 (2-4) g/dL Albumin/Globulin Ratio 1.6 (1-3) Beta HCG, Quant < 0.60 mIU/mL Result Diagrams: 08/08/19 11:21 08/08/19 11:21 Lab Statement: Any lab studies that have been ordered have been reviewed, and results considered in the medical decision making process. Abdominal Pain Fem Course/Dx - Course Course Of Treatment: Patient was evaluated in the emergency department for abdominal pain. Patient seen and examined. Laboratory studies show negative with no evidence of leukocytosis or anemia. H&H 14.4/41. Transvaginal ultrasound was done which revealed no evidence of ovarian cyst. Due to negative labs and imaging it is unlikely that any life-threatening infectious pathologies causing her symptoms. This could be due to an extremely heavy menstrual cycle. Patient was told to take ibuprofen 600 mg every 6 hours as needed for pain and to follow-up with her primary care doctor or [facility] machine. She was told to return to the emergency department immediately if she develops any new or worsening symptoms for CT scan of the abdomen and pelvis. CT of scan was deferred during this visit because the risks outweighed the benefits. Patient agreed to this plan. - Diagnoses Differential Diagnosis: Positive: Appendicitis, Constipation, Diverticulitis, Ectopic , Gall Bladder Disease, Ovarian Cyst, Urinary Tract Infection Provider Diagnoses: Abdominal pain Discharge ED - Sign-Out/Discharge Documenting (check all that apply): Patient Departure - Discharge Plan Condition: Stable Disposition: HOME Patient Education Materials: Acute Abdominal Pain (ED) Referrals: Sylvia Marsh MD [Primary Care Provider] - Polina Dunlap MD [Medical Doctor] - 3 Days Additional Instructions: You were seen in the emergency department today due to abdominal pain. Lab studies were done which showed no evidence of infection and an ultrasound was done which showed no evidence of ovarian cyst. I'm not certain what is causing your abdominal pain so please take ibuprofen for pain 600 mg every 6 hours as needed and If you develop any new or worsening symptoms please return to the emergency Department immediately. Please follow-up with your [facility] for further evaluation and management in 3-5 days if your symptoms do not improve. - Billing Disposition and Condition Condition: STABLE Disposition: Home - Attestation Statements Provider Attestation: I was available for consult. This patient was seen by the [facility]. The patient was not presented to, seen by, or examined by me. Jack Navarro MD
[2019-08-08] MEDS ORDERED: HYDROcodone/ACETAMIN 5-325 MG* 1 TAB PO ONE (13:46)
[2019-08-08 15:38] VITALS: BP 153/91
== END 2019-08-08 15:35 | disposition home or self-care (01) ==
LOC: ED 10:33
DX: R10.9 Unspecified abdominal pain (principal); K21.9 Gastro-esophageal reflux disease without esophagitis; R51 Headache; Z79.899 Other long term (current) drug therapy; Z86.14 Personal history of Methicillin resistant Staphylococcus aureus infection
CPT/HCPCS: 36415; 76830; 80053; 84702; 85025; 99282

== ENCOUNTER 2022-05-08 11:27 | Inpatient (IN) ==
[2022-05-08] MEDS ORDERED: Magnesium Sulfate OB PREMIX 4 GM/100 ML BAG IV ONE (12:22)
[2022-05-08] MEDS ORDERED: Calcium Gluconate 1 GM/10 ML VIAL (in Pyxis) IV PUSH PRN (12:22)
[2022-05-08] MEDS ORDERED: Lactated Ringers 1000 ml BAG 1,000 ML IV ONE (12:22)
[2022-05-08] MEDS ORDERED: Buffered Lidocaine 1% SYRIN 1 ml INTRADERM ONE (12:22)
[2022-05-08] MEDS ORDERED: Labetalol IV 5 MG/ML 20 ml VIAL IV PUSH ONE ×3 (12:24→13:38)
[2022-05-08] MEDS ORDERED: Labetalol IV 5 MG/ML 20 ml VIAL ONE (12:31)
[2022-05-08 12:36] LABS: ABS Basophils 0.1 10^3/ul (0-0.2); ABS Eosinophils 0.1 10^3/ul (0-0.6); ABS Lymphocytes 2.4 10^3/ul (1.0-4.8); ABS Monocytes 0.9 10^3/ul (0-0.8); ABS Neutrophils 9.2 10^3/ul (1.5-7.7); Hematocrit 42 % (35-47); Hemoglobin 13.9 g/dL (12.0-16.0); Lymphocyte % 18.9 %; Mean Corpuscular HGB Conc 34 g/dL (31-36); Mean Corpuscular Hemoglobin 28 pg (27-31); Mean Corpuscular Volume 84 fL (80-97); Mean Platelet Volume 8.8 fL (7.4-10.4); Platelet Count 244 10^3/uL (150-450); Red Blood Count 4.95 10^6 /uL (3.70-4.87); Red Cell Distribution Width 14 % (10-15); White Blood Count 12.7 10^3/uL (3.5-10.8)
[2022-05-08 12:49] LABS: Activated Partial Thrombo Time 30.6 seconds (26.0-38.0); Fibrinogen 485.5 mg/dL (110.8-404.3); INR 0.87 (0.89-1.11)
[2022-05-08] MEDS: Betamethasone 6 mg/ml 5 ml VIAL IM SCH (12:51)
[2022-05-08] MEDS ORDERED: Magnesium Sulfate OB PREMIX 40 GM/1,000 ML BAG IVPB SCH (13:00)
[2022-05-08] MEDS ORDERED: Lactated Ringers 1000 ml BAG 1,000 ML IV SCH ×2 (13:00→17:00)
[2022-05-08 13:02] LABS: Schistocytes ABSENT
[2022-05-08 13:03] LABS: Platelet Count 244 10^3/ul (150-450)
[2022-05-08 13:34] LABS: Urine Benzodiazepine Screen None Detected (None Detect); Urine Cannabinoids Screen None Detected (None Detect); Urine Opiates Screen None Detected (None Detect)
[2022-05-08] MEDS ORDERED: ceFOXitin 2 GM IVPREMIX 2 GM/50 ML BAG IVPB ONE (14:02)
[2022-05-08] MEDS ORDERED: Sodium Citrate/Citric Acid LIQ 15 ML UDC PO ONE (14:03)
[2022-05-08] MEDS ORDERED: Morphine PF AMP (0.5MG/ML) 5 MG/10 ML AMP ONE (14:27)
[2022-05-08] MEDS ORDERED: Oxytocin 10 UNITS/ML 1 ML VIAL ONE (14:29)
[2022-05-08] MEDS ORDERED: Ondansetron 4 mg VIAL 2 MG/ML 2 ml VIAL ONE (14:29)
[2022-05-08] MEDS ORDERED: Phenylephrine 40 mcg/mL 10mL (400mcg) SYRINGE ONE (14:29)
[2022-05-08] MEDS ORDERED: Naloxone 0.4 mg VIAL 0.4 mg/ml 1 ml VIAL IV PRN (14:38)
[2022-05-08] MEDS ORDERED: HYDROmorphone 1 MG/1 ML SYRINGE IV PRN (14:38)
[2022-05-08] MEDS ORDERED: Naloxone 0.4 mg VIAL 0.4 mg/ml 1 ml VIAL IV PUSH PRN (15:35)
[2022-05-08] MEDS ORDERED: Ondansetron 4 mg VIAL 2 MG/ML 2 ml VIAL IV PRN (15:35)
[2022-05-08] MEDS ORDERED: Acetaminophen IV 1 GM/100ML 1,000 MG/100 ML BAG IV PRN (15:35)
[2022-05-08] MEDS ORDERED: HYDROcodone/ACETAMIN 5/325 mg TAB PO PRN (15:38)
[2022-05-08] MEDS ORDERED: Glycerin ADULT 2.4 gm SUPP PR PRN (16:03)
[2022-05-08] MEDS ORDERED: Dibucaine 1% OINT 28.35 GM TUBE PR PRN (16:03)
[2022-05-08] MEDS ORDERED: Witch Hazel PAD JAR TOPICAL PRN (16:03)
[2022-05-08] MEDS ORDERED: Oxytocin in LR 20,000 MILLI.UNIT/1,000 ML BAG IV SCH (16:15)
[2022-05-09 06:26] LABS: Urine Appearance Clear; Urine Bilirubin Negative (Negative); Urine Blood Negative (Negative); Urine Color Yellow; Urine Glucose Negative (Negative); Urine Ketones Negative (Negative); Urine Nitrite Negative (Negative); Urine Protein 3+ (>=300 mg/dL) (Negative); Urine Urobilinogen 0.2 (Negative) (Negative)
[2022-05-09 06:28] LABS: Urine Bacteria Absent (Absent); Urine Red Blood Cell Absent (Absent); Urine Squamous Epithelial Cell Present (Absent); Urine White Blood Cell Absent (Absent)
[2022-05-09 07:30] LABS: ABS Basophils 0.1 10^3/ul (0-0.2); ABS Lymphocytes 2.1 10^3/ul (1.0-4.8); ABS Monocytes 1.5 10^3/ul (0-0.8); ABS Neutrophils 17.2 10^3/ul (1.5-7.7); Hematocrit 37 % (35-47); Hemoglobin 13.1 g/dL (12.0-16.0); Mean Corpuscular HGB Conc 35 g/dL (31-36); Mean Corpuscular Hemoglobin 30 pg (27-31); Mean Corpuscular Volume 84 fL (80-97); Mean Platelet Volume 8.8 fL (7.4-10.4); Platelet Count 265 10^3/uL (150-450); Red Blood Count 4.42 10^6 /uL (3.70-4.87); Red Cell Distribution Width 14 % (10-15); White Blood Count 20.8 10^3/uL (3.5-10.8)
[2022-05-10] MEDS: Betamethasone 6 mg/ml 5 ml VIAL IM SCH (00:48)
[2022-05-10] MEDS ORDERED: CMCS:Vortioxetine 10 mg TAB (NF) PO SCH (18:00)
[2022-05-11] MEDS ORDERED: CMCS:Vortioxetine 10 mg TAB (NF) PO SCH (21:00)
[2022-05-12] MEDS ORDERED: medroxyPROGESTERone ACETATE 150 MG/ML VIAL IM ONE (10:44)
[2022-05-12 13:27] VITALS: BP 153/78
== END 2022-05-12 14:05 | disposition home or self-care (01) | DRG 540 ==
LOC: MCHOBOUT 11:27 → MCHOB 12:24
PROVIDERS: ADMIT Obstetrics & Gynecology; ATTEND Obstetrics & Gynecology